=== PATIENT | male | born 1970 | race Caucasian/White ===

== ENCOUNTER 2021-10-15 15:41 | Emergency (ER) | payer BC, SELFPAY ==
--- NOTE | 2021-10-15 | ECG_ITS ---
Test Reason : palpitations Blood Pressure : / mmHG Vent. Rate : 062 BPM Atrial Rate : 062 BPM P-R Int : 140 ms QRS Dur : 096 ms QT Int : 398 ms P-R-T Axes : 029 020 045 degrees QTc Int : 403 ms Normal sinus rhythm Normal ECG When compared with ECG of 13-AUG-2017 06:58, No significant change was found Referred By: Generic ED Physician Electronically Signed By:David Hugo
--- NOTE | ~2021-10-15 | XR_ITS ---
EXAMINATION: XR CHEST CLINICAL INFORMATION: Palpitations COMPARISON: None TECHNIQUE: 2 views of the chest were obtained. FINDINGS: No significant abnormality is noted involving the heart, lungs, mediastinum, bony thorax or soft tissues. XR/XR chest 2V IMPRESSION: Unremarkable chest examination.
[2021-10-15 16:33] LABS: MANUAL DIFF FLAG NO
[2021-10-15 16:35] LABS: Basophils Absolute Auto 0.1 X10*3/uL (0.0-0.2); Basophils Percent Auto 0.7 % (0-2); Eosinophils Absolute Auto 0.2 X10*3/uL (0.0-0.4); Hematocrit 39.3 % (42.0-52.0); Hemoglobin 13.3 g/dl (14.0-18.0); Imm Gran Abs Auto 0.02 X10*3/uL (0.00-0.03); Imm Gran Pct Auto 0.2 % (0.0-0.4); Lymphocytes Absolute Auto 2.3 X10*3/uL (1.2-4.9); Lymphocytes Percent Auto 26.7 % (20-40); Mean Corpuscular HGB Conc 33.8 g/dl (31.0-36.0); Mean Corpuscular Hemoglobin 29.5 pg (27.0-33.0); Mean Corpuscular Volume 87.1 fL (80.0-98.0); Mean Platelet Volume 10.8 fL (9.4-12.4); Monocytes Absolute Auto 0.7 X10*3/uL (0.1-1.2); Monocytes Percent Auto 8.3 % (2-11); Neutrophils Absolute Auto 5.3 x10*3/uL (2.0-8.3); Neutrophils Percent Auto 62.1 % (45-73); Platelet Count 234 X10*3/uL (160-400); Red Blood Count 4.51 X10*6/uL (4.60-5.80); Red Cell Distribution Width 11.9 % (11.0-16.0); White Blood Count 8.6 X10*3/uL (4.8-10.8)
[2021-10-15 16:48] VITALS: BP 142/80; PULSE 64; RESP 18; TEMP 36.9; O2SAT 96; BMI 29.8
[2021-10-15 16:50] LABS: Anion Gap 14 (12-20); Blood Urea Nitrogen 12 mg/dL (9-16); Calcium 9.5 mg/dL (8.4-10.2); Carbon Dioxide 24 mmol/L (22-29); Chloride 106 mmol/L (96-108); Estimated Glomerular Filt Rate > 60; Glucose Random 117 mg/dL (60-115); Potassium 3.9 mmol/L (3.3-5.1); Sodium 140 mmol/L (135-145)
[2021-10-15 16:55] LABS: Troponin-I High Sensitivity < 3.5 ng/L (<3.5-35.0)
[2021-10-15 20:54] VITALS: BP 158/91; PULSE 67; RESP 18; O2SAT 98
[2021-10-15 21:17] VITALS: PULSE 64
[2021-10-15 21:21] VITALS: BP 144/86; PULSE 63; RESP 16; TEMP 36.9; O2SAT 95
[2021-10-15 21:46] LABS: INTERNATIONAL NORM RATIO 0.9 (0.9-1.1); Prothrombin Time 10.6 SEC (9.9-13.0)
[2021-10-15 21:49] LABS: Partial Thromboplastin Time 35.2 SEC (24.1-38.0)
[2021-10-15 21:50] LABS: TSH reflex Free T4 0.75 uIU/mL (0.32-4.0)
[2021-10-15 21:51] LABS: D Dimer High Sensitivity < 150 NG/ML
[2021-10-15 21:56] LABS: Troponin-I High Sensitivity < 3.5 ng/L (<3.5-35.0)
--- NOTE | 2021-10-15 22:10 | ED_ITS ---
HPI - General Adult General Chief complaint: Arrhythmia/Palpitations Stated complaint: concerned of fluttering heart Time Seen by Provider: 10/15/21 20:59 Source: patient Mode of arrival: ambulatory Limitations: no limitations History of Present Illness HPI narrative: 51-year-old male with history of high blood pressure presents to the ED for heart palpitations that began around 14:00. Patient denied having any shortness of breath. just sensation heart skipping beats. Patient states she has had this before in the past. Patient denies any leg swelling, calf pain, coughing up blood, fever, or chills. Presently patient is asymptomatic. Related Data Home Medications Medication Instructions Recorded Confirmed No Known Home Meds 09/24/21 09/24/21 Allergies Allergy/AdvReac Type Severity Reaction Status Date / Time No Known Allergies Allergy Verified 09/24/21 15:59 [No Known Allergies*] Review of Systems Review of Systems: Heart palpitations Yes all other systems are reviewed and are negative [facility] Past Medical History Surgical History History of tooth extraction Family History Family History Father FH: brain cancer Mother FH: HTN (hypertension) Social History Social History (Updated 09/24/21 @ 16:08 by Broderick Gaytan PA-C) Alcohol intake: current Alcohol intake frequency: 3 or more drinks per day Alcohol type: beer Patient Tobacco Use Status: Former Tobacco user Quit Date: 2012 Tobacco use type: Cigarette Advance Directives: No Advance Directives Information Provided: No Current occupational status: employed Current occupation: [employer] ( [place]) Physical Exam ED Vital Signs: Vital Signs - 24 hr 10/15/21 16:48 10/15/21 20:54 10/15/21 21:21 Temperature 98.4 F 98.4 F Pulse Rate 64 67 63 Respiratory Rate 18 18 16 Blood Pressure 142/80 H 158/91 H 144/86 H Pulse Oximetry 96 98 95 BMI result Body Mass Index 29.8 Const General: cooperative, healthy appearing, comfortable, no acute distress and well developed Orientation/consciousness: patient oriented x3 HENMT Head: Yes normal to inspection, Yes No palpable skull fracture present, Yes normocephalic, Yes atraumatic and No abrasion Eyes General: appearance normal, both eyes and all related structures Neck Neck: Yes normal visual inspection, Yes full ROM, Yes no lymphadenopathy, Yes no meningeal signs, Yes trachea midline, Yes supple, No anterior neck swelling and No tender Chest Chest palpation & inspection: normal inspection of the chest and normal palpation of entire chest wall Resp Effort & Inspection: normal respiratory effort and able to speak in complete sentences Auscultation: clear to auscultation bilaterally Cardio Jugular venous distension: no JVD Heart sounds: S1 normal heart sound present and S2 normal heart sound present GI Inspection: Yes normal to inspection and No abdominal wall ecchymosis Palpation (GI): Soft to palpation, not firm, nontender, no guarding and not rigid General: No CVA tenderness and Yes no CVA tenderness Back/Spine/Pelvis Back: no CVA tenderness, No CVA tenderness and No back tenderness Skin General skin exam: no rashes or lesions noted and elasticity normal Neuro General: patient oriented x3, gait normal, no meningeal signs and CN's II-XI intact bilaterally Cranial nerves: Yes CN's II-XII intact bilaterally Extrem Other: Lower extremities negative for swelling, pitting edema, or calf tenderness General: Yes normal to inspection and Yes full ROM Psych Appearance: grossly normal, well kempt and not disheveled Course Course Course Narrative: EKG, TSH, D-dimer, and basic labs including troponin chest x-ray ordered. Reevaluation(s) Reevaluation #1: EKG negative STEMI. Two troponins negative. D-dimer negative. Well's Score is 0 Thyroid level normal. Chest x-ray normal. Patient informed to follow-up primary care provider for Holter monitoring. Time: 22:39 Medical Decision Making [facility] Narrative Medical decision making narrative: Palpitation Lab Data Result diagrams: 10/15/21 16:30 10/15/21 16:30 Labs: Lab Results 10/15/21 10/15/21 10/15/21 Range/Units 16:30 16:30 16:30 WBC 8.6 (4.8-10.8) X10*3/uL RBC 4.51 L (4.60-5.80) X10*6/uL Hgb 13.3 L (14.0-18.0) g/dl Hct 39.3 L (42.0-52.0) % MCV 87.1 (80.0-98.0) fL MCH 29.5 (27.0-33.0) pg MCHC 33.8 (31.0-36.0) g/dl RDW 11.9 (11.0-16.0) % Plt Count 234 (160-400) X10*3/uL MPV 10.8 (9.4-12.4) fL Immature Gran % (Auto) 0.2 (0.0-0.4) % Neut % (Auto) 62.1 (45-73) % Lymph % (Auto) 26.7 (20-40) % [place] % (Auto) 8.3 (2-11) % Eos % (Auto) 2.0 (0-4) % Baso % (Auto) 0.7 (0-2) % Lymph # (Auto) 2.3 (1.2-4.9) X10*3/uL [place] # (Auto) 0.7 (0.1-1.2) X10*3/uL Eos # (Auto) 0.2 (0.0-0.4) X10*3/uL Baso # (Auto) 0.1 (0.0-0.2) X10*3/uL Abs Immat Gran (auto) 0.02 (0.00-0.03) X10*3/uL Absolute Neuts (auto) 5.3 (2.0-8.3) x10*3/uL Absolute Nucleated RBC 0.000 (0.0-0.012) X10*3/uL Nucleated RBC % (auto) 0.0 (0.0-0.2) /100WBC PT (9.9-13.0) SEC INR (0.9-1.1) APTT (24.1-38.0) SEC D-Dimer High Sensitivty NG/ML Sodium 140 (135-145) mmol/L Potassium 3.9 (3.3-5.1) mmol/L Chloride 106 (96-108) mmol/L Carbon Dioxide 24 (22-29) mmol/L Anion Gap 14 (12-20) BUN 12 (9-16) mg/dL Creatinine 1.00 (0.5-1.4) mg/dL Estim Creat Clear Calc TNP Estimated GFR > 60 Random Glucose 117 H (60-115) mg/dL Calcium 9.5 (8.4-10.2) mg/dL Troponin I High Sens < 3.5 (<3.5-35.0) ng/L TSH 0.75 (0.32-4.0) uIU/mL 10/15/21 10/15/21 Range/Units 21:29 21:29 WBC (4.8-10.8) X10*3/uL RBC (4.60-5.80) X10*6/uL Hgb (14.0-18.0) g/dl Hct (42.0-52.0) % MCV (80.0-98.0) fL MCH (27.0-33.0) pg MCHC (31.0-36.0) g/dl RDW (11.0-16.0) % Plt Count (160-400) X10*3/uL MPV (9.4-12.4) fL Immature Gran % (Auto) (0.0-0.4) % Neut % (Auto) (45-73) % Lymph % (Auto) (20-40) % [place] % (Auto) (2-11) % Eos % (Auto) (0-4) % Baso % (Auto) (0-2) % Lymph # (Auto) (1.2-4.9) X10*3/uL [place] # (Auto) (0.1-1.2) X10*3/uL Eos # (Auto) (0.0-0.4) X10*3/uL Baso # (Auto) (0.0-0.2) X10*3/uL Abs Immat Gran (auto) (0.00-0.03) X10*3/uL Absolute Neuts (auto) (2.0-8.3) x10*3/uL Absolute Nucleated RBC (0.0-0.012) X10*3/uL Nucleated RBC % (auto) (0.0-0.2) /100WBC PT 10.6 (9.9-13.0) SEC INR 0.9 (0.9-1.1) APTT 35.2 (24.1-38.0) SEC D-Dimer High Sensitivty < 150 NG/ML Sodium (135-145) mmol/L Potassium (3.3-5.1) mmol/L Chloride (96-108) mmol/L Carbon Dioxide (22-29) mmol/L Anion Gap (12-20) BUN (9-16) mg/dL Creatinine (0.5-1.4) mg/dL Estim Creat Clear Calc Estimated GFR Random Glucose (60-115) mg/dL Calcium (8.4-10.2) mg/dL Troponin I High Sens < 3.5 (<3.5-35.0) ng/L TSH (0.32-4.0) uIU/mL ECG Data Interpretation: Normal sinus rhythm. Ventricular rate 62. Pr interval 140. QRS 96. QTC 403. Negative STEMI. Discharge Plan Discharge Clinical Impression: Palpitations Patient Disposition: Home, Self-Care Instructions: Heart Palpitations (DC) Additional Instructions: You're EKG and blood work came back normal and negative for signs of heart attack, risk of pulmonary embolus, or hyperthyroidism. Chest x-ray came back negative for pneumonia. You need to follow-up with your primary care provider for a Holter monitor test. Return to the ED immediately for any chest pain, shortness of breath, leg swelling, calf pain, coughing up blood, weakness, fever, chills, or any other concerning symptoms. Prescriptions: No Action No Known Home Meds 0RF Stand Alone Forms: Work/School Release Interventions: ED Discharge Assessment Last Done: 10/15/21 22:50 Discharge Date/Time: 10/15/21 22:50 Print Language: Tajik
== END 2021-10-15 22:50 | disposition home or self-care (01) ==
PROVIDERS: Physician Assistant; Emergency Provider Internal Medicine; PCP Physician Assistant
DX: R00.2 Palpitations (principal)
CPT/HCPCS: 36415; 71046; 80048; 84443; 84484; 85025; 85379; 85610; 85730; 93005; 99283; 99284

== ENCOUNTER 2021-11-05 08:27 | Outpatient (REF) | payer BC, SELFPAY ==
--- NOTE | ~2021-11-05 | XR_ITS ---
EXAMINATION: XR THORACOLUMBAR SPINE CLINICAL INFORMATION: Pain COMPARISON: Previous chest x-ray most recent January 2013 TECHNIQUE: 3 views of the thoracic spine including swimmer's view FINDINGS: There is mild curvature of the midthoracic spine to the right with apex at T6-T7. This is similar to previous chest x-ray from 2013. Bone alignment is otherwise normal. No fracture or dislocation is seen. Disc spaces are normal. Paraspinal soft tissues are normal. XR/XR thoracic spine 2V IMPRESSION: Mild curvature of the midthoracic spine to the right.
[2021-11-05 09:35] LABS: Hematocrit 40.3 % (42.0-52.0); Hemoglobin 13.4 g/dl (14.0-18.0); Mean Corpuscular HGB Conc 33.3 g/dl (31.0-36.0); Mean Corpuscular Hemoglobin 29.4 pg (27.0-33.0); Mean Corpuscular Volume 88.4 fL (80.0-98.0); Mean Platelet Volume 11.1 fL (9.4-12.4); Platelet Count 200 X10*3/uL (160-400); Red Blood Count 4.56 X10*6/uL (4.60-5.80); Red Cell Distribution Width 12.2 % (11.0-16.0); White Blood Count 7.1 X10*3/uL (4.8-10.8)
[2021-11-05 09:42] LABS: Estimated Average Glucose 117 mg/dL; Hemoglobin A1c % 5.7 %
[2021-11-05 10:15] LABS: Alanine Aminotransferase 52 U/L (0-40); Albumin Level 4.2 g/dL (3.5-5.0); Alkaline Phosphatase 66 U/L (39-117); Anion Gap 11 (12-20); Aspartate Amino Transferase 31 U/L (5-37); Bilirubin Total 0.5 mg/dL (0.0-1.0); Blood Urea Nitrogen 15 mg/dL (9-16); Calcium 9.7 mg/dL (8.4-10.2); Carbon Dioxide 30 mmol/L (22-29); Chloride 103 mmol/L (96-108); Cholesterol 217 mg/dL; Estimated Glomerular Filt Rate > 60; Glucose Fasting 106 mg/dL (60-99); HDL Cholesterol 41 mg/dL; LDL Cholesterol Calculated 127 mg/dl; Potassium 4.5 mmol/L (3.3-5.1); Sodium 139 mmol/L (135-145); Total Protein 6.8 g/dL (6.5-8.0); Triglycerides 249 mg/dL
[2021-11-05 10:35] LABS: Prostate Specific Antigen Scr 0.32 ng/mL (<0.05-4.0)
== END 2021-11-05 08:28 | disposition home or self-care (01) ==
LOC: HO.LAB 08:27
PROVIDERS: PCP Physician Assistant; Visit Provider Physician Assistant
DX: Z12.5 Encounter for screening for malignant neoplasm of prostate (principal); Z13.220 Encounter for screening for lipoid disorders; Z13.29 Encounter for screening for other suspected endocrine disorder; M54.6 Pain in thoracic spine
CPT/HCPCS: 36415; 72070; 80053; 80061; 83036; 84153; 84443; 85027

== ENCOUNTER → 2021-11-07 10:44 | Outpatient (BNVA) | payer BC, SELFPAY | PROVIDERS: PCP Physician Assistant; Visit Provider Physician Assistant | DX: Z13.89 Encounter for screening for other disorder (principal) ==

== ENCOUNTER → 2021-12-16 13:08 | Outpatient (BNVA) | payer BC, SELFPAY | PROVIDERS: PCP Physician Assistant; Visit Provider Physician Assistant | DX: Z12.11 Encounter for screening for malignant neoplasm of colon (principal) ==

== ENCOUNTER 2022-04-15 11:15 | Day surgery (SDC) | payer BC, SELFPAY ==
[2022-04-10 12:37] VITALS: BMI 30.6
--- NOTE | 2022-04-14 11:56 | P.CONAN_ITS ---
Documented by User: Priya Hooper NP 04/14/22 12:07 HPI - Anesthesia Eval Consult details Narrative: 51yo M for Upper Endoscopy and Colonoscopy Had palpitations 10/2021, none since. Nml EKG and trops in ED. Followed up with PCP. Holter pending. [facility] Active Problems Active Problems: All Active Problems (Updated 04/10/22 @ 12:33 by Brisa Chang RN) Obese (Acute) Screening for diabetes mellitus (DM) (Acute) Screening for hypercholesterolemia (Acute) Screening for hypothyroidism (Acute) Elevated blood pressure reading (Acute) Thoracic spine pain (Acute) Colon cancer screening (Acute) Annual physical exam (Acute) Heart palpitations (Acute) Borderline high cholesterol (Acute) Elevated AST (SGOT) (Acute) Skin lesion of cheek (Acute) Chronic GERD (Acute) Past Medical History Medical History Palpitations Family History Family History Father FH: brain cancer Mother FH: HTN (hypertension) Surgical History Surgical History History of nasal surgery History of tooth extraction Social History Social History Housing: House Alcohol intake: current Alcohol intake frequency: 3 or more drinks per day Alcohol type: beer Patient Tobacco Use Status: Former Tobacco user Quit Date: 2012 Tobacco use type: Cigarette e-Cigarette/Vaping Use: Never Used Advance Directives: No Advance Directives Information Provided: Yes Current occupational status: employed Current occupation: [employer]) Cognitive needs: No Hearing needs: No Vision needs: No Meds Allergies Allergy/AdvReac Type Severity Reaction Status Date / Time No Known Allergies Allergy Verified 12/16/21 13:09 [No Known Allergies*] Home Medications Medication Instructions Recorded Confirmed Last Taken Type cetirizine 10 mg capsule (Zyrtec) 10 mg PO DAILY PRN Allergy Symptoms 11/18/21 04/10/22 Unknown History omeprazole magnesium 20 mg 20 mg PO DAILY 11/18/21 04/10/22 Unknown History tablet,delayed release (Prilosec OTC) Exam Exam Date and Time: April 14, 2022 1156 Height,Weight and Vital Signs: Height 6 ft Weight 102.512 kg Pertinent Lab Results Pertinent Lab Results: Laboratory Tests 11/05/21 11/05/21 08:50 08:50 WBC 7.1 Hgb 13.4 L Hct 40.3 L Plt Count 200 Sodium 139 Potassium 4.5 Chloride 103 Carbon Dioxide 30 H BUN 15 Creatinine 0.96 Narrative Narrative: EKG 09/2021 Vent. Rate : 062 BPM ? ? Atrial Rate : 062 BPM ?? P-R Int : 140 ms? QRS Dur : 096 ms ? ? QT Int : 398 ms ? ? ? P-R-T Axes : 029 020 045 degrees ?? QTc Int : 403 ms ? Normal sinus rhythm Normal ECG When compared with ECG of 13-AUG-2017 06:58, No significant change was found Assessment and Plan Assessment Anesthesia Assessment: Chart Reviewed Documented by User: Refugio Graham MD 04/15/22 12:17 [facility] Past Medical History Medical History Palpitations Family History Family History Father FH: brain cancer Mother FH: HTN (hypertension) Family history of problems with anesthesia: No Surgical History Surgical History History of nasal surgery History of tooth extraction History of Problems with Anesthesia: No Social History Social History Housing: House Alcohol intake: current Alcohol intake frequency: 3 or more drinks per day Alcohol type: beer Patient Tobacco Use Status: Former Tobacco user Quit Date: 2012 Tobacco use type: Cigarette e-Cigarette/Vaping Use: Never Used Advance Directives: No Advance Directives Information Provided: Yes Current occupational status: employed Current occupation: [employer]) Cognitive needs: No Hearing needs: No Vision needs: No Meds Allergies Allergy/AdvReac Type Severity Reaction Status Date / Time No Known Allergies Allergy Verified 12/16/21 13:09 [No Known Allergies*] Home Medications Medication Instructions Recorded Confirmed Last Taken Type cetirizine 10 mg capsule (Zyrtec) 10 mg PO DAILY PRN Allergy Symptoms 11/18/21 04/10/22 Unknown History omeprazole magnesium 20 mg 20 mg PO DAILY 11/18/21 04/10/22 Unknown History tablet,delayed release (Prilosec OTC) Exam Airway Mallampati Class: III TM Dist: >3cm Neck ROM: Full Heart: rrr Lungs: clear Assessment and Plan Final Anesthetic Review Family History of Problems with Anesthesia: No History of Problems with Anesthesia: No NPO: Yes ASA Class: II Final Preanesthetic Review: No Changes in Pt Med Stat, Meds/Allgs Chart Reviewed, Consent Obtained/Reviewed and Anes Risks/Benef Reviewed Anesthetic Plan Anesthetic Plan: MAC: Disposition: Standard PACU
[2022-04-15] MEDS: Lactated Ringers 1,000 ML 100 ML IVCONT (11:47)
--- NOTE | 2022-04-15 12:00 | P.HPSUR_ITS ---
Pre-Procedural Eval Section A Date of Service: 04/15/22 Section B Chief Complaint: screening,reflux Relevant Family History (Specify if Yes): No Relevant Social History: Other (specify) (ex smoker ) Present Medications: see Short Stay Collaborative assessment Medical History: Significant History (Palpitations) History of Previous Operations: Relevant previous surgery/procedure and date(s) (nasal surgery) Allergies: Allergies Allergy/AdvReac Type Severity Reaction Status Date / Time No Known Allergies Allergy Verified 12/16/21 13:09 [No Known Allergies*] Review of Systems Sugical H&P ROS: Negative: Constitution, Cardiovascular, Respiratory, Neuro logical, Psychiatric, Hem-Onc, Allergic/Immunologic, Gastrointestinal, Genitourinary, Musculoskeletal, Integumentary, Endocrine and Eyes/Ears/Nose/Throat Exam Surgical H&P Exam: Normal: HEENT, Normal: Heart, Normal: Lungs, Normal: Extremities, Normal: Abdomen, Normal: Skin and Normal: Neurological Plan Diagnosis/Plan: Unchanged I have reviewed the history and physical and performed a pertinent physical examination on my patient. No changes have occurred unless specified.
--- NOTE | 2022-04-15 12:24 | W.PM.OPN ---
Operative Note Operative Note Date of Service: 04/15/22 Narrative: Operative Information Procedure Description: EGD, Colonoscopy Indication: reflux, screening Anesthesia: MAC FLEXIBLE TRANSORAL UPPER GASTROINTESTINAL ENDOSCOPY AND COLONOSCOPY PROCEDURE NOTE UPPER ENDOSCOPY Consent: Indications for the procedure and potential complications of bleeding, perforation, reaction to medications and missed diagnosis were discussed with the patient and informed consent was obtained. Instrument: Olympus GIF H 190 J mid size upper endoscope Monitoring: Vital signs and clinical assessment, continuous EKG monitoring, Pulse oximetry, Carbon Dioxide monitoring and blood pressure monitoring were done throughout the procedure. Procedure: The patient was placed in the left lateral decubitis position and pre-procedure medications were administered and a bite block was placed. The endoscope was inserted into the mouth and advanced under direct vision to the third part of duodenum. A careful inspection was made as the upper endoscope was withdrawn including a retroflexed examination of the proximal stomach; Findings and interventions are described below. Findings: Larynx:normal Esophagus: GE junction at 40 cm, diaphragm hiatus at 40 cm, irregular Z line,. bx taken from GEJ and distal esophagus Stomach: Granular erythemaous mucosa. Biopsies were obtained. Grade 2 flap valve on retroflexed examination of the cardia. Duodenum: mild bulbar duodenitis Intervention: Biopsies as noted above COLONOSCOPY Instrument: Olympus variable stiffness pediatric scope 190L Colonoscopy Monitoring: Vital signs and clinical assessment, continuous EKG monitoring, Pulse oximetry, Carbon Dioxide monitoring and blood pressure monitoring were done throughout the procedure. Colon withdrawal time was 8 minutes. Procedure: The patient was placed in the left lateral decubitis position and pre-procedure medications were administered. After a digital rectal examination of the ano-rectum, the video colonoscope was inserted into the rectum and advanced through the colon to the cecum/TI. The colonoscope was slowly withdrawn in a retrograde panoramic fashion and the colon mucosa was carefully examined including a retroflexed view of the rectum. Findings and interventions are described below. Procedure Difficulty: easy Findings: Terminal Ileum-normal right sided retroflexion -normal Cecum:normal Ascending Colon: 12-14 mm sessile polyp removed with cold snare and then x 1 clip applied for hemostasis Transverse Colon -normal Descending Colon:normal Sigmoid Colon:mild to moderate diverticulosis Rectum: Retroflexion with small internal hemorrhoids, grade I Anorectum - normal Colon preparation: [place] Bowel Preparation Scale Right colon; 3 Transverse colon: 3 Left colon; 3 (0 = Unprepared colon segment with mucosa not seen due to solid stool that cannot be cleared. 1 = Portion of mucosa of the colon segment seen, but other areas of the colon segment not well seen due to staining, residual stool and/or opaque liquid. 2 = Minor amount of residual staining, small fragments of stool and/or opaque liquid, but mucosa of colon segment seen well. 3 = Entire mucosa of colon segment seen well with no residual staining, small fragments of stool or opaque liquid) Impression and Post Procedure Diagnosis: Endoscopy Findings: duodenitis gastritis Colonoscopy Findings: polyp internal hemorrhoids diverticular disease Plan: Await Pathology results Repeat Colonoscopy in 3-5 years or earlier if clinically indicated High fiber diet leaflet avoid straining at stool, epsom salts and sitz bath, anusol supps or cream cont with PPI, if barretts confirmed then repeat EGD in 3-5 years, if h pylori pos then treat Above findings were reviewed with the patient and relevant handouts were provided if indicated.
[2022-04-15 13:02] VITALS: BP 143/82; PULSE 77; RESP 16; TEMP 36.7; O2SAT 96
[2022-04-15 13:17] VITALS: BP 121/70; PULSE 65; RESP 16; TEMP 36.7; O2SAT 97
== END 2022-04-15 14:06 | disposition home or self-care (01) ==
PROVIDERS: PCP Physician Assistant; Visit Provider Internal Medicine Gastroenterology
PROC: (CPT 45385; principal; 2022-04-15 12:30)
DX: Z12.11 Encounter for screening for malignant neoplasm of colon (principal); D12.2 Benign neoplasm of ascending colon; K57.30 Diverticulosis of large intestine without perforation or abscess without bleeding; K64.0 First degree hemorrhoids; K21.9 Gastro-esophageal reflux disease without esophagitis; K29.80 Duodenitis without bleeding; K29.70 Gastritis, unspecified, without bleeding; K44.9 Diaphragmatic hernia without obstruction or gangrene; Z79.899 Other long term (current) drug therapy; Z87.891 Personal history of nicotine dependence
CPT/HCPCS: 45385; 43239; 88305; 88342

== ENCOUNTER 2023-06-04 15:39 | Outpatient (AMB) | payer BC, SELFPAY ==
[2023-06-04 15:41] VITALS: BP 150/90; PULSE 82; O2SAT 95; BMI 30.8
--- NOTE | 2023-06-04 15:41 | A.OFFPC_ITS ---
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: No Accompanied by: Self / Same As Patient Allergies No Known Allergies [No Known Allergies*] Allergy (Verified 06/04/23 16:40) Medication List - Last Reconciled 06/04/23 by Broderick Gaytan PA-C cetirizine (Zyrtec) 10 mg PO DAILY PRN hydrochlorothiazide 12.5 mg PO DAILY 30 days omeprazole 20 mg PO DAILY Tobacco use date assessed: 11/18/21 Dental Screening Dental Screen Date: 06/04/23 Did you have a dental visit in the last 12 months?: Yes Did you have a dental problem in the last 6 months where you did not have access to dental care?: No Was dental information given to patient?: Patient has dentist HPI Annual Physical HPI Details Patient is a 52-year-old male here today for routine annual physical concerns--> reports having having right knee in the medial aspect of his right knee. Denies any recent trauma. He attributes this to perhaps having arthritis. Former smoker: Patient is a former smoker and quit in 2012.? The from time to time does have a cigar while playing golf. Hypertension Has noted elevated blood pressure today in office.? He does report sometimes have an elevated blood pressure at home though most readings have been 130-150s? systolic.? He continues on hydrochlorothiazide though blood pressure still slightly elevated at home even. Otherwise patient denies any chest discomfort, shortness of breath, dizziness or headaches. PLAN: Will add on lisinopril for better blood pressure control Colonic polyp: Recently had gotten colonoscopy--> tubulovillous adenoma, needs repeat colonoscopy in 3 years 2024 Laboratory Tests 11/05/21 08:50 Creatinine 0.96 Fasting Glucose 106 H Hemoglobin A1c % 5.7 Triglycerides 249 Cholesterol 217 LDL Cholesterol, C alc 127 [facility] Medical History Palpitations Surgical History Hx of esophagogastroduodenoscopy Hx of colonoscopy History of nasal surgery History of tooth extraction Family History Father FH: brain cancer Mother FH: HTN (hypertension) Afib Social History (Updated 06/04/23 @ 16:51 by Broderick Gaytan PA-C) Housing: House Alcohol intake: current Alcohol intake frequency: 0-2 drinks per day Alcohol type: beer Patient Tobacco Use Status: Former Tobacco user Quit Date: 2012 Tobacco use type: Cigarette e-Cigarette/Vaping Use: Never Used Current occupational status: employed Current occupation: [employer] ( [email or web address]) Cognitive needs: No Hearing needs: No Vision needs: No Questionnaire PHQ-9 Over the last 2 weeks, how often have you been bothered by any of the following problems? 1. Little interest or pleasure in doing things: not at all 2. Feeling down, depressed, or hopeless: not at all 3. Trouble falling or staying asleep, or sleeping too much: not at all 4. Feeling tired or having little energy: not at all 5. Poor appetite or overeating: not at all 6. Feeling bad about yourself - or that you are a failure or have let yourself or your family down: not at all 7. Trouble concentrating on things, such as reading the newspaper or watching television: not at all 8. Moving or speaking so slowly that other people could have noticed. Or the opposite - being so fidgety or restless that you have been moving around a lot more than usual: not at all 9. Thoughts that you would be better off or of hurting yourself in some way: not at all Total score: 0 Depression Screening Interpretation: Negative Depression Screening Done: Yes Source: Developed by Drs. Jarvis Kelly, Mary Mata, Man Marshall and colleagues, with an educational juli from [employer]. Thrive Questionnaire Date Thrive assessed: 06/04/23 I am a: Patient What is your living situation today?: I have a steady place to live Within the past 12 months, did the food you bought not last and you didn't have the money to get more?: Never true Within the past 12 months, did you worry whether your food would run out before you got money to buy more?: Never true Do you have trouble paying for medicines?: No Do you have trouble getting transportation to medical appointments?: No Do you have trouble paying your heating and electricity bill?: No Do you have trouble taking care of your child, family member or friend?: No Do you have trouble with day-to-day activities such as bathing, preparing meals, shopping, managing finances, etc.?: No Are you currently unemployed and looking for a job?: No Are you interested in more education?: No Please select the resources that you would like help with: None Currently or been in a relationship where the following occur: no concerns reported AUDIT C Alcohol Use Questionnaire (AUDIT-C) 1. How often do you have a drink containing alcohol?: Monthly or less 2. How many drinks containing alcohol do you have on a typical day when you are drinking?: 1 or 2 3. How often do you have six or more drinks on one occasion?: Never Total Score: 1 MERRY-7 AMB Questionnaire MERRY-7 Date MERRY - 7 assessed: 06/04/23 Feeling nervous, anxious, or on edge: 0 = Not at all Not being able to stop or control worryin = Not at all Worrying too much about different things: 0 = Not at all Trouble relaxin = Not at all Being so restless that it is hard to sit still: 0 = Not at all Becoming easily annoyed or irritable: 0 = Not at all Feeling afraid as if something awful might happen: 0 = Not at all Total MERRY-7 score (0-4 normal; 5-9 mild; 10-14 moderate; 15-21 severe): 0 Source: Developed by Drs. Jarvis Kelly, Mary Mata, Man Marshall and colleagues, with an educational juli from [employer]. MERRY-7 Assessment Billing MERRY-7 Assessment Tool: MERRY-7 Assessment [id number] Review of Systems Const Denies body aches, Denies chills, Denies excessive sweating, Denies fatigue, Denies fever(s) and Denies headache(s) Eyes Denies blurry vision ENT Denies dysphagia, Denies vertigo, Denies dizziness, Denies headache(s), Denies hearing loss and Denies tinnitus Card Denies chest pain, Denies chest pain with activity, Denies syncope, Denies irregular heart rhythm and Denies dyspnea Resp Denies chest congestion, Denies cough, Denies hemoptysis, Denies dyspnea and Denies wheezing GI Denies abdominal pain, Denies melena, Denies hematochezia, Denies coffee ground emesis, Denies dysphagia, Denies diarrhea, Denies nausea and Denies vomiting Denies difficulty urinating, Denies dysuria, Denies urinary frequency, Denies urinary hesitancy and Denies urinary urgency Musc Denies arthralgias, Denies limited range of motion, Denies muscle cramps and Denies muscle weakness Skin/Breast Denies rash and Denies skin ulcer Neuro Denies Abnormal speech present, Denies confusion, Denies vertigo, Denies dizziness, Denies syncope, Denies headache(s), Denies memory loss and Denies seizure-like activity Psych Denies anxiety, Denies confusion, Denies depression, Denies memory loss, Denies panic attacks and Denies paranoia Endo Denies excessive sweating, Denies fatigue, Denies flushing, Denies polydipsia and Denies polyuria Aller/Immun Denies wheezing Physical exam (Primary Care) Vital Signs: Last Vital Signs Pulse 82 06/04/23 15:41 BP 150/80 H 06/04/23 16:52 Pulse Ox 95 06/04/23 15:41 Oxygen Delivery Method Room Air 06/04/23 15:41 BMI result Body Mass Index 30.8 Tobacco/Smoking Status: Tobacco use Status Tobacco use date assessed 11/18/21 06/04/23 15:43 Patient Tobacco Use Status Former Tobacco user 06/04/23 16:51 Tobacco use type Cigarette 06/04/23 16:51 e-Cigarette/Vaping Use Never Used 06/04/23 16:51 PHQ-9: PHQ-9 Score PHQ-9: Total score 0 06/09/23 07:49 Depression Screening Interpretation: Negative Thrive Assessment: Date of Thrive Assessment Date Thrive assessed 06/04/23 06/04/23 16:16 Currently or been in a relationship where the following occur: no concerns reported Const General: cooperative, comfortable, no acute distress, alert and awake; No confusion Orientation/consciousness: oriented to person, oriented to place, patient oriented x3 and No confusion HENMT Head: Yes normocephalic Ears: external ears normal and TM's normal bilaterally Face and sinus: No sinus tenderness Mouth: Normal oral and palatal mucosa present and tongue normal Teeth and gingiva: dentition normal and gingiva normal Throat: Yes posterior oropharynx normal, Yes tonsils normal and Yes uvula midline Eyes Conjunctivae: conjunctivae normal Sclerae: sclerae normal Pupils: Equal, round and reactive pupils present EOM: EOMs intact bilaterally Direct Ophthalmoscopy: No no photophobia Neck Neck: Yes no lymphadenopathy, No tender and Yes no JVD Thyroid: Thyroid normal Carotids: no bruits Chest Chest palpation & inspection: no tenderness Resp Effort & Inspection: normal respiratory effort, no audible wheezes, not labored and no stridor Auscultation: no crackles, no rales, no rhonchi and no wheezes Cardio Jugular venous distension: no JVD Rate: regular rate, not bradycardic and not tachycardic Rhythm: regular rhythm Bruits: no carotid bruits Peripheral pulses: Peripheral pulses 2+ throughout GI Inspection: Yes normal to inspection, No abdominal wall ecchymosis and No visi ble herniation Palpation (GI): Soft to palpation, nontender, no guarding, not rigid and No hepatosplenomegaly present Auscultation: normoactive bowel sounds General: Yes no CVA tenderness Back/Spine/Pelvis Back: no CVA tenderness and No back tenderness Cervical Spine: cervical ROM normal Thoracic/Lumbar Spine: thoracic and lumbar spine normal to inspection, straight leg raise negative bilaterally, No thoraco-lumbar ROM limited and No lumbar spinal tenderness Skin Lesions: no lesions Rashes: no rashes Wounds: no wounds Neuro General: oriented to person, oriented to place, patient oriented x3, CN's II-XI intact bilaterally and No confusion Cranial nerves: Yes Equal, round and reactive pupils present and Yes Normal accommodation reflex present Cognition (Neuro): normal cognition Speech: No Abnormal speech present Gait exam (Neuro): Normal gait present Motor exam (neuro): 5/5 motor strength present throughout Extrem Right upper extremity: full ROM; no cyanosis Left upper extremity: full ROM; no cyanosis Right lower extremity: no edema Left lower extremity: no edema Psych Appearance: grossly normal Mental Status: mental status grossly normal Affect: normal affect Attitude: cooperative Thought process: Normal thought process present Office Procedures Flu Questionnaire Does the patient have a severe egg allergy?: No Does the patient have severe life threatening allergies?: No Does the patient have a fever or illness today?: No Has the patient ever had Guillain-Baraga Syndrome?: No Has the patient ever had any past reaction to a flu shot?: No Immunizations flu vacc [id number] 6mos up(PF) 60 mcg(15 mcgx4)/0.5 mL IM syringe Performing Provider: Broderick Gaytan PA-C [facility] Administered by: KASSIE Ramirez on 06/04/23 16:36 Dose Route Admin Location Dispensed Lot Number Expiration Date [employer] 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 0.5 mL IM Left Deltoid 0.5 mL [id number] 01/24/24 39730-981-96 [employer] VIS Given Date VIS Provided VIS Publication Date 06/04/23 Single Vaccine 21 Eligibility Eligibility Date Funding Source Not [facility] Eligible 06/04/23 Private Assessment and Plan Assessment & Plan (1) Annual physical exam: Code(s): Z00.00 - Encounter for general adult medical examination without abnormal findings (2) HTN (hypertension): Code(s): I10 - Essential (primary) hypertension Qualifiers: Hypertension type: primary hypertension Qualified Code(s): I10 - Essential (primary) hypertension Plan: Patient's blood pressure slightly elevated today in office. He does report home blood pressures have been a little more elevated. He is willing to add on lisinopril for better blood pressure control. (3) Tubulovillous adenoma: Comment: Repeat asymptomatic colonoscopy 3 years All first-degree relatives begin colon screening age 40 Code(s): D36.9 - Benign neoplasm, unspecified site Plan: Needs repeat colonoscopy in 2024 due to tubular adenoma polyp. (4) MCL sprain of right knee: Code(s): S83.411A - Sprain of medial collateral ligament of right knee, initial encounter Qualifiers: Encounter type: subsequent encounter Qualified Code(s): S83.411D - Sprain of medial collateral ligament of right knee, subsequent encounter Plan: Seems to have MCL sprain to the right knee. Advised on conservative treatment (5) Borderline high cholesterol: Code(s): E78.9 - Disorder of lipoprotein metabolism, unspecified Plan: Patient's most recent lipid panel showing borderline high total cholesterol. He would like to work on lifestyle modifications and reducing his cholesterol. Goal LDL to remain below 160 Orders: Orders Comprehensive [place]. Panel Fast 06/04/23 I10 - Essential (primary) hypertension Lipid Panel 06/04/23 I10 - Essential (primary) hypertension Influenza [id number] Immunization 06/04/23 Z23 - Encounter for immunization Microalbumin, Random (w Creat) 06/04/23 I10 - Essential (primary) hypertension Medications: New lisinopril-hydrochlorothiazide 10-12.5 mg 1 tab PO DAILY 90 days 90 tabs 1RF I10 - Essential (primary) hypertension Discontinued hydrochlorothiazide Discontinued Reason: Doctor's Order 12.5 mg PO DAILY 30 days 30 tabs 3RF I10 - Essential (primary) hypertension Coding Level of Care Code Est Pt Prev Care 40-64y(63832) Diagnoses Annual physical exam Z00.00 Primary hypertension I10 Hypertension type: primary hypertension Tubulovillous adenoma D36.9 Sprain of medial collateral ligament of right knee, subsequent encounter S83.411D Encounter type: subsequent encounter Borderline high cholesterol E78.9 Additional Codes MERRY-7 Assessment Billing - MERRY-7 Assessment Tool: MERRY-7 Assessment [id number] ([id number])
[2023-06-04 16:52] VITALS: BP 150/80
== END 2023-06-04 17:06 | disposition home or self-care (01) ==
PROVIDERS: Visit Provider Physician Assistant
DX: Z23 Encounter for immunization (principal)
CPT/HCPCS: 90471; 90686; 99396

== ENCOUNTER 2023-10-30 07:39 | Outpatient (REF) | payer BC, SELFPAY ==
[2023-10-30 09:14] LABS: Creatinine Urine 82.55 mg/dL; Microalbumin Urine < 5.0 mg/L
[2023-10-30 09:23] LABS: Alanine Aminotransferase 68 U/L (0-40); Albumin Level 4.1 g/dL (3.5-5.0); Alkaline Phosphatase 66 U/L (39-117); Anion Gap 12 (12-20); Aspartate Amino Transferase 26 U/L (5-37); Bilirubin Total 0.7 mg/dL (0.0-1.0); Blood Urea Nitrogen 15 mg/dL (9-16); Calcium 9.6 mg/dL (8.4-10.2); Carbon Dioxide 29 mmol/L (22-29); Chloride 102 mmol/L (96-108); Cholesterol 218 mg/dL (<200); Estimated Glomerular Filt Rate > 60; Glucose Fasting 104 mg/dL (60-99); HDL Cholesterol 40 mg/dL (>40); LDL Cholesterol Calculated 131 mg/dL (<100); Potassium 3.8 mmol/L (3.3-5.1); Sodium 139 mmol/L (135-145); Triglycerides 236 mg/dL (<150)
== END 2023-10-30 07:40 | disposition home or self-care (01) ==
LOC: HO.LAB 07:39
PROVIDERS: PCP Physician Assistant; Visit Provider Physician Assistant
DX: I10 Essential (primary) hypertension (principal)
CPT/HCPCS: 36415; 80053; 80061; 82043; 82570

== ENCOUNTER 2024-05-12 08:19 | Outpatient (REF) | payer BC, SELFPAY ==
[2024-05-12 09:38] LABS: Alanine Aminotransferase 50 U/L (0-40); Albumin Level 4.1 g/dL (3.5-5.0); Alkaline Phosphatase 63 U/L (39-117); Anion Gap 12 (12-20); Aspartate Amino Transferase 32 U/L (5-37); Bilirubin Total 0.6 mg/dL (0.0-1.0); Blood Urea Nitrogen 14 mg/dL (9-16); Calcium 9.4 mg/dL (8.4-10.2); Carbon Dioxide 29 mmol/L (22-29); Chloride 103 mmol/L (96-108); Estimated Glomerular Filt Rate > 60; Glucose Random 115 mg/dL (60-115); Sodium 140 mmol/L (135-145)
[2024-05-12 09:58] LABS: Prostate Specific Antigen Scr 0.31 ng/mL (<0.05-4.0)
== END 2024-05-12 08:20 | disposition home or self-care (01) ==
LOC: HO.LAB 08:19
PROVIDERS: PCP Physician Assistant; Visit Provider Physician Assistant
DX: I10 Essential (primary) hypertension (principal); Z12.5 Encounter for screening for malignant neoplasm of prostate
CPT/HCPCS: 36415; 80053; 84153

== ENCOUNTER → 2024-05-23 08:17 | Outpatient (BNV) | payer BC, SELFPAY | PROVIDERS: Emergency Provider Emergency Medicine; PCP Physician Assistant; Visit Provider Internal Medicine | DX: I49.3 Ventricular premature depolarization (principal) | CPT/HCPCS: 93010 ==

== ENCOUNTER 2024-05-23 08:19 | Emergency (ER) | payer BC, SELFPAY ==
--- NOTE | 2024-05-23 | ECG_ITS ---
Test Reason : irregular heart rate Blood Pressure : / mmHG Vent. Rate : 067 BPM Atrial Rate : 067 BPM P-R Int : 146 ms QRS Dur : 094 ms QT Int : 394 ms P-R-T Axes : 018 014 030 degrees QTc Int : 416 ms Normal sinus rhythm Premature ventricular complexes Otherwise normal ECG When compared with ECG of 15-OCT-2021 16:28, Premature ventricular complexes are now Present Referred By: Generic ED Physician Electronically Signed By:NARDA BEARDEN
--- NOTE | ~2024-05-23 | XR_ITS ---
EXAMINATION: XR CHEST CLINICAL INFORMATION: Chest pain. COMPARISON: Chest radiograph 10/15/2021. TECHNIQUE: Frontal view of the chest was obtained. FINDINGS: Stable asymmetric elevation of the right hemidiaphragm. No focal consolidation, pleural effusion or pneumothorax. Unchanged appearance of the cardiomediastinal silhouette. No acute osseous findings. XR/XR chest 1V IMPRESSION: No acute cardiopulmonary findings. Electronically signed by: Carley Pickard MD 05/23/2024 09:50 AM EDT
[2024-05-23 08:28] VITALS: BP 136/80; PULSE 52; RESP 16; TEMP 36.3; O2SAT 97; BMI 31.9
--- NOTE | 2024-05-23 08:45 | ED_ITS ---
HPI - Arrhythmia/Palpitations General Chief Complaint: Arrhythmia/Palpitations Stated Complaint: Irregular heart rate Time Seen by Provider: 05/23/24 08:38 Source: patient Mode of arrival: ambulatory Limitations: no limitations History of Present Illness HPI narrative: This is 53 years old patient presented to the emergency department with a chief complaint of feeling of palpitations he denies any chest pain shortness of breath. He has some shoulder pain which is reproduced the by the movement of the shoulder. He has no exertional symptoms MD complaint: skipped beats Duration: intermittent Severity: mild Context: occurred during rest Associated symptoms: denies other symptoms Related Data Home Medications ?Medication ?Instructions ?Recorded ?Confirmed cetirizine 10 mg capsule (Zyrtec) 10 mg PO DAILY PRN Allergy Symptoms 11/18/21 06/04/23 Previous Rx's ?Medication ?Instructions ?Recorded omeprazole 20 mg capsule,delayed 20 mg PO DAILY #90 caps 12/17/23 release losartan 50 mg-hydrochlorothiazide 1 tab PO DAILY 90 days #90 tabs 04/22/24 12.5 mg tablet Allergies Allergy/AdvReac Type Severity Reaction Status Date / Time No Known Allergies Allergy Verified 05/23/24 08:31 [No Known Allergies*] Review of Systems 2 Constitutional: Constitutional: Reports no additional constitutional complaints Cardiovascular: Cardiovascular: Reports as per HPI and Reports no additional cardiovascular complaints [facility] Past Medical History Attestation statement: The following information was validated with the patient. [facility] Narrative: Hypertension Medical History Palpitations Surgical History Hx of esophagogastroduodenoscopy Hx of colonoscopy History of nasal surgery History of tooth extraction Family History Family History Father FH: brain cancer Mother FH: HTN (hypertension) Afib Social History Social History (Updated 06/04/23 @ 16:51 by Broderick Gaytan PA-C) Housing: House Alcohol intake: current Alcohol intake frequency: 0-2 drinks per day Alcohol type: beer and hard liquor Patient Tobacco Use Status: Former Tobacco user Tobacco use type: Cigarette Smoked in Last 30 Days: No e-Cigarette/Vaping Use: Never Used Use of substances other than those prescribed or required for medical reasons: No Advance Directives: No Advance Directives Information Provided: Yes Do you have a plan to hurt others: No Plan Current occupational status: employed 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[place]) Cognitive needs: No Hearing needs: No Vision needs: No Physical Exam 2 Vital Signs: Vital Signs: Last Vital Signs Temp 97.9 F 05/23/24 11:39 Pulse 56 05/23/24 11:39 Resp 14 05/23/24 11:39 BP 119/71 05/23/24 11:39 Pulse Ox 98 05/23/24 11:39 O2 Del Method Room Air 05/23/24 11:39 BMI result Body Mass Index 31.9 Looks well no toxic-appearing Const: General: cooperative Nutritional Appearance: average body habitus Orientation/consciousness: oriented to person and patient oriented x3 L imitations: no limitations HEENT: Head: Yes normal to inspection Neck: Neck: Yes normal visual inspection Chest: Chest palpation & inspection: normal inspection of the chest Resp: Effort & Inspection: normal respiratory effort Cardio: Jugular venous distension: no JVD Rate: regular rate Rhythm: r egular rhythm GI: Inspection: Yes normal to inspection Palpation (GI): Soft to palpation and not firm : General: Yes no CVA tenderness Back/Spine/Pelvis: Back: no CVA tenderness Skin: General skin exam: no rashes or lesions noted Lesions: no lesions Rashes: no rashes Wounds: no wounds Neuro: General: oriented to person and patient oriented x3 Cranial nerves: Yes CN's II-XII intact bilaterally Course Reevaluation(s) Reevaluation #1: On re-examination remained stable a delta troponin negative chest x-ray normal I think he can be discharged home on a monitor he has a frequent PVCs I think that is the reason for his feeling of palpitation Time: 12:27 Medical Decision Making Medical Decision Making [facility] Narrative: Patient presented with palpitation we will obtain EKG high sensitive troponin Differential Diagnosis Differential Diagnoses: The differential diagnosis associated with the presentation includes SVT/AFib/a flutter/ Admission/Observation Consideration of admission/observation: Escalation of care including admission/observation considered Lab Data [facility] Lab Attestation statement: I reviewed the patient's lab results. 05/23/24 09:10 05/23/24 09:10 Labs: Lab Results 05/23/24 05/23/24 05/23/24 Range/Units 09:10 10:31 11:43 WBC 9.2 (4.8-10.8) X10*3/uL RBC 4.57 L (4.60-5.80) X10*6/uL Hgb 13.6 L (14.0-18.0) g/dl Hct 40.5 L (42.0-52.0) % MCV 88.6 (80.0-98.0) fL MCH 29.8 (27.0-33.0) pg MCHC 33.6 (31.0-36.0) g/dl RDW 12.2 (11.0-16.0) % Plt Count 210 (160-400) X10*3/uL MPV 10.9 (9.4-12.4) fL Immature Gran % (Auto) 0.3 (0.0-0.4) % Neut % (Auto) 60.8 (45-73) % Lymph % (Auto) 27.2 (20-40) % Reeves % (Auto) 8.6 (2-11) % Eos % (Auto) 2.4 (0-4) % Baso % (Auto) 0.7 (0-2) % Lymph # (Auto) 2.5 (1.2-4.9) X10*3/uL Reeves # (Auto) 0.8 (0.1-1.2) X10*3/uL Eos # (Auto) 0.2 (0.0-0.4) X10*3/uL Baso # (Auto) 0.1 (0.0-0.2) X10*3/uL Abs Immat Gran (auto) 0.03 (0.00-0.03) X10*3/uL Absolute Neuts (auto) 5.6 (2.0-8.3) x10*3/uL Absolute Nucleated RBC 0.000 (0.0-0.012) X10*3/uL Nucleated RBC % (auto) 0.0 (0.0-0.2) /100WBC Sodium 140 (135-145) mmol/L Potassium 4.0 (3.3-5.1) mmol/L Chloride 103 (96-108) mmol/L Carbon Dioxide 33 H (22-29) mmol/L Anion Gap 8 L (12-20) BUN 13 (9-16) mg/dL Creatinine 0.88 (0.5-1.4) mg/dL Estim Creat Clear Calc 124.0 Estimated GFR > 60 Random Glucose 122 H (60-115) mg/dL Calcium 9.5 (8.4-10.2) mg/dL Troponin I High Sens < 2.7 < 2.7 (<3.5-35.0) ng/L Urine Color Yellow Urine Appearance Clear Urine pH 6.5 (5.0-9.0) Ur Specific [place] <= 1.005 (1.005-1.025) Urine Protein Negative (Neg-Trace) mg/dL Urine Glucose (UA) Negative (Negative) mg/dL Urine Ketones Negative (Negative) mg/dL Urine Blood Negative (Negative) Urine Nitrite Negative (Negative) Ur Leukocyte Esterase Negative (Negative) Independent Interpretation I performed an independent interpretation of an: EKG Interpretation: I reviewed interpreted the electrocardiogram months normal sinus rhythm rate 67 ST-T segments are isoelectric PVCs Independent Historian Clinical information obtained from an independent historian. History obtained from or confirmed by: Spouse Discharge Plan Discharge Clinical Impression: Palpitation Patient Disposition: Home, Self-Care Instructions: Heart Palpitations (DC) Additional Instructions: New been evaluated for palpitation your blood work for heart attack was negative x2, we will refer you to cardiology for follow-up return to the emergency room if you worse Prescriptions: No Action omeprazole 20 mg capsule,delayed release(DR/EC) 20 mg PO DAILY Qty: 90 1RF losartan-hydrochlorothiazide 50-12.5 mg tablet 1 tab PO DAILY 90 Days Qty: 90 1RF Zyrtec 10 mg capsule 10 mg PO DAILY PRN (Reason: Allergy Symptoms) Referrals: David Hugo MD [Physician] - 5 days Stand Alone Forms: Work/School Release Print Language: Yakut
[2024-05-23 09:15] LABS: MANUAL DIFF FLAG NO
[2024-05-23 09:20] LABS: Basophils Absolute Auto 0.1 X10*3/uL (0.0-0.2); Basophils Percent Auto 0.7 % (0-2); Eosinophils Absolute Auto 0.2 X10*3/uL (0.0-0.4); Eosinophils Percent Auto 2.4 % (0-4); Hematocrit 40.5 % (42.0-52.0); Hemoglobin 13.6 g/dl (14.0-18.0); Imm Gran Abs Auto 0.03 X10*3/uL (0.00-0.03); Imm Gran Pct Auto 0.3 % (0.0-0.4); Lymphocytes Absolute Auto 2.5 X10*3/uL (1.2-4.9); Lymphocytes Percent Auto 27.2 % (20-40); Mean Corpuscular HGB Conc 33.6 g/dl (31.0-36.0); Mean Corpuscular Hemoglobin 29.8 pg (27.0-33.0); Mean Corpuscular Volume 88.6 fL (80.0-98.0); Mean Platelet Volume 10.9 fL (9.4-12.4); Monocytes Absolute Auto 0.8 X10*3/uL (0.1-1.2); Monocytes Percent Auto 8.6 % (2-11); Neutrophils Absolute Auto 5.6 x10*3/uL (2.0-8.3); Neutrophils Percent Auto 60.8 % (45-73); Platelet Count 210 X10*3/uL (160-400); Red Blood Count 4.57 X10*6/uL (4.60-5.80); Red Cell Distribution Width 12.2 % (11.0-16.0); White Blood Count 9.2 X10*3/uL (4.8-10.8)
[2024-05-23 09:31] LABS: Anion Gap 8 (12-20); Blood Urea Nitrogen 13 mg/dL (9-16); Calcium 9.5 mg/dL (8.4-10.2); Carbon Dioxide 33 mmol/L (22-29); Chloride 103 mmol/L (96-108); Estimated Glomerular Filt Rate > 60; Glucose Random 122 mg/dL (60-115); Sodium 140 mmol/L (135-145)
[2024-05-23 09:39] VITALS: BP 113/71; PULSE 60; RESP 12; O2SAT 96
[2024-05-23 09:39] LABS: Troponin-I High Sensitivity < 2.7 ng/L (<3.5-35.0)
[2024-05-23 11:03] LABS: Troponin-I High Sensitivity < 2.7 ng/L (<3.5-35.0)
[2024-05-23 11:39] VITALS: BP 119/71; PULSE 56; RESP 14; TEMP 36.6; O2SAT 98
[2024-05-23 11:49] LABS: Appearance Urine Clear; Color Urine Yellow; Glucose Urine UA Negative (Negative); Leukocyte Esterase Urine Negative (Negative); Nitrite Urine Negative (Negative); PH 6.5 (5.0-9.0); Specific Gravity - Urine <= 1.005 (1.005-1.025); Urine Blood Negative (Negative); Urine Ketones Negative (Negative); Urine Protein Negative (Neg-Trace)
[2024-05-23 12:36] VITALS: BP 119/71; PULSE 56; RESP 14; TEMP 36.6; O2SAT 98
== END 2024-05-23 12:41 | disposition home or self-care (01) ==
PROVIDERS: Emergency Provider Emergency Medicine; PCP Physician Assistant
DX: R00.2 Palpitations (principal); R06.02 Shortness of breath; I10 Essential (primary) hypertension; E78.9 Disorder of lipoprotein metabolism, unspecified; Z79.899 Other long term (current) drug therapy
CPT/HCPCS: 36415; 71045; 80048; 81003; 84484; 85025; 93005; 99283; 99284

== ENCOUNTER 2024-06-08 13:18 | Outpatient (AMB) | payer BC, SELFPAY ==
[2024-06-08 13:39] VITALS: BP 144/88; PULSE 83; O2SAT 98; BMI 31.4
--- NOTE | 2024-06-08 13:39 | A.OFFPC_ITS ---
Vital Signs 06/08/24 13:39 06/08/24 13:59 Height 6 ft Weight 231 lb 4 oz BMI 31.4 BP 144/88 H 120/70 Blood Pressure Location Lt brachial Position Sitting Pulse 83 Pulse Source Pulse Oximeter Pulse Oximetry (%) 98 Oxygen Delivery Method Room Air Intake Visit Reasons: Annual exam Intake Note: Patient is here today for a physical. Rn Telemetry Required: No Accompanied by: Self / Same As Patient Allergies No Known Allergies [No Known Allergies*] Allergy (Verified 06/08/24 13:42) Medication List - Last Reconciled 06/08/24 by Broderick Gaytan PA-C cetirizine (Zyrtec) 10 mg PO DAILY PRN losartan-hydrochlorothiazide 50-12.5 mg 1 tab PO DAILY 90 days omeprazole 20 mg PO DAILY Tobacco use date assessed: 06/08/24 Dental Screening Dental Screen Date: 06/08/24 Did you have a dental visit in the last 12 months?: Yes Did you have a dental problem in the last 6 months where you did not have access to dental care?: No Was dental information given to patient?: Patient has dentist HPI Annual exam HPI Details atient is a 52-year-old male here today for routine annual physical concerns--> During the emergency room visit, the patient was informed of a dysrhythmia detected via monitor, although specifics were not detailed in the conversation. The patient schedules a Holter monitor for further examination, and reports elevated blood pressure at the ER, although his baseline readings are usually lower. Past medical history is notable for mild hypertension, for which he is on Losartan. In addition to cardiovascular symptoms, he is experiencing bloating and belching, suggesting possible ongoing GERD, notwithstanding current management with omeprazole. Past diagnostic workup revealed a colonic polyp with precancerous features excised in 2021, and the patient is advised for a repeat colonoscopy in three years. He reports taking multiple nighttime medications but has been advised to modify his omeprazole regimen to mornings, given concerns about medication timing and effectiveness. Hypertension : Blood pressure slightly elevated today in office. He has transitioning to losartan hydrochlorothiazide and blood pressures seem to have been better. He otherwise denies any headaches, shortness of breath or dizziness. As above had an episode of heart palpitations and presyncopal episode which led him to an ER visit. l Colonic polyp: Recently had gotten colonoscopy--> tubulovillous adenoma, needs repeat colonoscopy in 3 years 2024 Vaccine: Up-to-date with COVID vaccine flu vaccine, tetanus and pneumonia vaccines. PFSH Medical History Palpitations Surgical History Hx of esophagogastroduodenoscopy Hx of colonoscopy History of nasal surgery History of tooth extraction Family History Father FH: brain cancer Mother FH: HTN (hypertension) Afib Social History Housing: House Alcohol intake: current Alcohol intake frequency: 0-2 drinks per day Alcohol type: beer and hard liquor Patient Tobacco Use Status: Former Tobacco user Tobacco use type: Cigarette e-Cigarette/Vaping Use: Never Used service: No Current occupational status: employed Current occupation: [employer] ( [employer]) Cognitive needs: No Hearing needs: No Vision needs: No Questionnaire PHQ-9 Over the last 2 weeks, how often have you been bothered by any of the following problems? 1. Little interest or pleasure in doing things: not at all 2. Feeling down, depressed, or hopeless: not at all 3. Trouble falling or staying asleep, or sleeping too much: not at all 4. Feeling tired or having little energy: not at all 5. Poor appetite or overeating: not at all 6. Feeling bad about yourself - or that you are a failure or have let yourself or your family down: not at all 7. Trouble concentrating on things, such as reading the newspaper or watching television: not at all 8. Moving or speaking so slowly that other people could have noticed. Or the opposite - being so fidgety or restless that you have been moving around a lot more than usual: not at all 9. Thoughts that you would be better off or of hurting yourself in some way: not at all Total score: 0 Depression Screening Interpretation: Negative Depression Screening Done: Yes 86531 - PHQ-9 Billing: Yes Source: Developed by Drs. Jarvis L. Robin, Man Soria and colleagues, with an educational juli from [employer]. Thrive Questionnaire Date Thrive assessed: 06/08/24 I am a: Patient What is your living situation today?: I have a steady place to live Within the past 12 months, did the food you bought not last and you didn't have the money to get more?: Never true Within the past 12 months, did you worry whether your food would run out before you got money to buy more?: Never true Do you have trouble paying for medicines?: No Do you have trouble getting transportation to medical appointments?: No Do you have trouble paying your heating and electricity bill?: No Do you have trouble taking care of your child, family member or friend?: No Do you have trouble with day-to-day activities such as bathing, preparing meals, shopping, managing finances, etc.?: No Are you currently unemployed and looking for a job?: No Are you interested in more education?: No Please select the resources that you would like help with: None Currently or been in a relationship where the following occur: No concerns reported THRIVE Score: 0 AUDIT C Alcohol Use Questionnaire (AUDIT-C) 1. How often do you have a drink containing alcohol?: 4 or more times a week 2. How many drinks containing alcohol do you have on a typical day when you are drinking?: 1 or 2 3. How often do you have six or more drinks on one occasion?: Less than monthly Total Score: 5 MERRY-7 AMB Questionnaire MERRY-7 Date MERRY - 7 assessed: 06/08/24 Feeling nervous, anxious, or on edge: 1 = Several days Not being able to stop or control worryin = Not at all Worrying too much about different things: 0 = Not at all Trouble relaxin = Not at all Being so restless that it is hard to sit still: 0 = Not at all Becoming easily annoyed or irritable: 0 = Not at all Feeling afraid as if something awful might happen: 1 = Several days Total MERRY-7 score (0-4 normal; 5-9 mild; 10-14 moderate; 15-21 severe): 2 Source: Developed by Mary Syed Kurt Kroenke and colleagues, with an educational juli from [employer]. MERRY-7 Assessment Billing MERRY-7 Assessment Tool: MERRY-7 Assessment 37489 Review of Systems Const Denies body aches, Denies chills, Denies excessive sweating, Denies fatigue, Denies fever(s) and Denies headache(s) Eyes Denies blurry vision ENT Denies dysphagia, Denies vertigo, Denies dizziness, Denies headache(s), Denies hearing loss and Denies tinnitus Card Denies chest pain, Denies chest pain with activity, Denies syncope, Denies irregular heart rhythm and Denies dyspnea Resp Denies chest congestion, Denies cough, Denies hemoptysis, Denies dyspnea and Denies wheezing GI Denies abdominal pain, Denies melena, Denies hematochezia, Denies coffee ground emesis, Denies dysphagia, Denies diarrhea, Denies nausea and Denies vomiting Denies difficulty urinating, Denies dysuria, Denies urinary frequency, Denies urinary hesitancy and Denies urinary urgency Musc Denies arthralgias, Denies limited range of motion, Denies muscle cramps and Denies muscle weakness Skin/Breast Denies rash and Denies skin ulcer Neuro Denies Abnormal speech present, Denies confusion, Denies vertigo, Denies dizziness, Denies syncope, Denies headache(s), Denies memory loss and Denies seizure-like activity Psych Denies anxiety, Denies confusion, Denies depression, Denies memory loss, Denies panic attacks and Denies paranoia Endo Denies excessive sweating, Denies fatigue, Denies flushing, Denies polydipsia and Denies polyuria Aller/Immun Denies wheezing Physical exam (Primary Care) Vital Signs: Last Vital Signs Pulse 83 06/08/24 13:39 BP 120/70 06/08/24 13:59 Pulse Ox 98 06/08/24 13:39 Oxygen Delivery Method Room Air 06/08/24 13:39 BMI result Body Mass Index 31.4 Tobacco/Smoking Status: Tobacco use Status Tobacco use date assessed 06/08/24 06/08/24 13:40 Patient Tobacco Use Status Former Tobacco user 06/08/24 13:40 Tobacco use type Cigarette 06/08/24 13:40 e-Cigarette/Vaping Use Never Used 06/08/24 13:40 PHQ-9: PHQ-9 Score PHQ-9: Total score 0 06/08/24 15:21 Depression Screening Interpretation: Negative Thrive Assessment: Date of Thrive Assessment Date Thrive assessed 06/08/24 06/08/24 13:40 Currently or been in a relationship where the following occur: No concerns reported Const General: cooperative, comfortable, no acute distress, alert and awake; No confusion Orientation/consciousness: oriented to person, oriented to place, patient oriented x3 and No confusion HENMT Head: Yes normocephalic Ears: external ears normal and TM's normal bilaterally Face and sinus: No sinus tenderness Mouth: Normal oral and palatal mucosa present and tongue normal Teeth and gingiva: dentition normal and gingiva normal Throat: Yes posterior oropharynx normal, Yes tonsils normal and Yes uvula midline Eyes Conjunctivae: conjunctivae normal Sclerae: sclerae normal Pupils: Equal, round and reactive pupils present EOM: EOMs intact bilaterally Direct Ophthalmoscopy: No no photophobia Neck Neck: Yes no lymphadenopathy, No tender and Yes no JVD Thyroid: Thyroid normal Carotids: no bruits Chest Chest palpation & inspection: no tenderness Resp Effort & Inspection: normal respiratory effort, no audible wheezes, not labored and no stridor Auscultation: no crackles, no rales, no rhonchi and no wheezes Cardio Jugular venous distension: no JVD Rate: regular rate, not bradycardic and not tachycardic Rhythm: regular rhythm Bruits: no carotid bruits Peripheral pulses: Peripheral pulses 2+ throughout GI Inspection: Yes normal to inspection, No abdominal wall ecchymosis and No visible herniation Palpation (GI): Soft to palpation, nontender, no guarding, not rigid and No hepatosplenomegaly present Auscultation: normoactive bowel sounds General: Yes no CVA tenderness Back/Spine/Pelvis Back: no CVA tenderness and No back tenderness Cervical Spine: cervical ROM normal Thoracic/Lumbar Spine: thoracic and lumbar spine normal to inspection, straight leg raise negative bilaterally, No thoraco-lumbar ROM limited and No lumbar spinal tenderness Skin Lesions: no lesions Rashes: no rashes Wounds: no wounds Neuro General: oriented to person, oriented to place, patient oriented x3, CN's II-XI intact bilaterally and No confusion Cranial nerves: Yes Equal, round and reactive pupils present and Yes Normal accommodation reflex present Cognition (Neuro): normal cognition Speech: No Abnormal speech present Gait exam (Neuro): Normal gait present Motor exam (neuro): 5/5 motor strength present throughout Extrem Right upper extremity: full ROM; no cyanosis Left upper extremity: full ROM; no cyanosis Right lower extremity: no edema Left lower extremity: no edema Psych Appearance: grossly normal Mental Status: mental status grossly normal Affect: normal affect Attitude: cooperative Thought process: Normal thought process present Office Procedures Flu Questionnaire Does the patient have a severe egg allergy?: No Does the patient have severe life threatening allergies?: No Does the patient have a fever or illness today?: No Has the patient ever had Guillain-[place] Syndrome?: No Has the patient ever had any past reaction to a flu shot?: No Results AMB Hemoglobin A1c AMB Hemoglobin A1c 6.0 % Last Edit by KASSIE Ramirez on 06/08/24 13:43 Immunizations Fluarix Triv [id number] (PF) 45 mcg (15 mcg x 3)/0.5 mL IM syringe Performing Provider: Broderick Gaytan PA-C [facility] Administered by: KASSIE Ramirez on 06/08/24 13:40 Dose Route Admin Location Dispensed Lot Number Expiration Date [facility] [employer] Install[employer] 0.5 mL IM Left Deltoid 0.5 mL [id number] 01/23/25 [id number] [employer] VIS Given Date VIS Provided VIS Publication Date 06/08/24 Single Vaccine 21 Eligibility Eligibility Date Funding Source Not [facility] Eligible 06/08/24 Private Results Reviewed Results Reviewed: Laboratory Last Values Hgb A1c (Clinic) 6.0 % (4.0-6.0) 06/08/24 13:42 Coding Level of Care Code Est Pt Prev Care 40-64y(30232) Diagnoses Annual physical exam Z00.00 Borderline high cholesterol E78.9 Heart palpitations R00.2 Primary hypertension I10 Hypertension type: primary hypertension Class 1 obesity E66.811 Chronic GERD K21.9 Additional Codes MERRY-7 Assessment Billing - MERRY-7 Assessment Tool: MERRY-7 Assessment 06802 ([id number]) PHQ-9 - 78666 - PHQ-9 Billing: Yes ([id number]) Assessment & Plan Assessment & Plan (1) Annual physical exam: Code(s): Z00.00 - Encounter for general adult medical examination without abnormal findings Category: Medical Plan: As per HPI (2) Borderline high cholesterol: Code(s): E78.9 - Disorder of lipoprotein metabolism, unspecified Category: Medical Plan: Dietary recommendations emphasized: limit animal fats and incorporate cardiovascular exercise. (3) Heart palpitations: Code(s): R00.2 - Palpitations Category: Medical Plan: Proceed with scheduled Holter monitor to assess rhythm irregularity. Referral to cardiology is anticipated once data is collected. (4) HTN (hypertension): Code(s): I10 - Essential (primary) hypertension Category: Medical Qualifiers: Hypertension type: primary hypertension Qualified Code(s): I10 - Essential (primary) hypertension Plan: Continue Losartan; monitor blood pressure at home and consider lifestyle modifications. Goal BP to be below 140/ 90 (5) Class 1 obesity: Code(s): E66.811 - Obesity, class 1 Category: Medical Plan: Patient does understand his BMI is over 30 will continue working on lifestyle modifications and dietary modifications to reduce his weight (6) Chronic GERD: Comment: Will increase Omeprazole 20 mg bid x 8 wks- avoid culprits Code(s): K21.9 - Gastro-esophageal reflux disease without esophagitis Category: Medical Plan: Advise switching omeprazole administration to morning on an empty stomach for optimal efficacy. Consider alternative PPIs if symptoms persist. Orders: Orders Influenza [id number] Immunization 06/08/24 Z23 - Encounter for immunization AMB Hemoglobin A1c 06/08/24 Z13.1 - Encounter for screening for diabetes mellitus Medications: Refilled omeprazole 20 mg PO DAILY 90 caps 1RF
[2024-06-08 13:59] VITALS: BP 120/70
== END 2024-06-08 14:04 | disposition home or self-care (01) ==
PROVIDERS: PCP Physician Assistant; Visit Provider Physician Assistant
DX: Z00.00 Encounter for general adult medical examination without abnormal findings (principal); E78.9 Disorder of lipoprotein metabolism, unspecified; Z68.31 Body mass index [BMI] 31.0-31.9, adult; E66.811 Obesity, class 1; R00.2 Palpitations; I10 Essential (primary) hypertension; K21.9 Gastro-esophageal reflux disease without esophagitis

== ENCOUNTER → 2024-06-08 13:18 | Outpatient (BNVA) | payer BC, SELFPAY | PROVIDERS: PCP Physician Assistant; Visit Provider Physician Assistant | DX: Z00.00 Encounter for general adult medical examination without abnormal findings (principal); Z23 Encounter for immunization; E78.9 Disorder of lipoprotein metabolism, unspecified; R00.2 Palpitations; I10 Essential (primary) hypertension; E66.811 Obesity, class 1; Z68.31 Body mass index [BMI] 31.0-31.9, adult; K21.9 Gastro-esophageal reflux disease without esophagitis; Z79.899 Other long term (current) drug therapy | CPT/HCPCS: 83036; 90471; 90656; 96127 ==

== ENCOUNTER → 2024-06-15 08:01 | Outpatient (REF) | payer BC, SELFPAY ==
--- NOTE | 2024-06-15 08:06 | HM_ITS ---
* Total monitoring time 5 days. * Underlying rhythm is sinus with an average rate of 80/Min. * Frequent ventricular ectopy with a burden of 16%. No significant runs. * No significant pauses or high-grade AV blocks. * Stomach cramps in patient diary correlates with PVCs. MTDD
== END ==
LOC: HO.CARD 08:01
PROVIDERS: PCP Physician Assistant; Visit Provider Physician Assistant
DX: R00.2 Palpitations (principal)
CPT/HCPCS: 93242

== ENCOUNTER → 2024-06-15 08:06 | Outpatient (BNV) | payer BC, SELFPAY | PROVIDERS: PCP Physician Assistant; Visit Provider Internal Medicine | DX: I49.3 Ventricular premature depolarization (principal) | CPT/HCPCS: 93244 ==

== ENCOUNTER 2024-07-11 13:04 | Outpatient (REF) | payer BC, SELFPAY ==
--- NOTE | ~2024-07-11 | XR_ITS ---
EXAMINATION: XR CHEST CLINICAL INFORMATION: R05.9 - Cough, unspecified COMPARISON: 05/23/2024, 10/15/2021 TECHNIQUE: 2 views of the chest were obtained. FINDINGS: Lung volumes are low. There is no gross pneumothorax. Heart size is normal. Asymmetric elevation of the right lung base redemonstrated. There is no gross pneumothorax. Hazy opacities in the mid to lower left lung. No significant pleural effusion. Mild degenerative changes in the thoracic spine. XR/XR chest 2V IMPRESSION: 1. Hazy opacities in the mid to lower left lung. 2. Redemonstration of asymmetric elevation of the right lung base this study was presented today to July 12, 2024 for interpretation. Stat results provided at this time as requested by referring provider. Electronically signed by: Erica Watkins MD 07/12/2024 08:33 AM [facility]ST
== END 2024-07-11 13:05 | disposition home or self-care (01) ==
LOC: HO.XRAY 13:04
PROVIDERS: PCP Physician Assistant; Visit Provider Physician Assistant
DX: R05.9 Cough, unspecified (principal)
CPT/HCPCS: 71046

== ENCOUNTER → 2024-07-22 13:21 | Outpatient (REF) | payer BC, SELFPAY ==
--- NOTE | ~2024-07-22 | XR_ITS ---
EXAMINATION: XR CHEST CLINICAL INFORMATION: Cough. COMPARISON: Most recent chest radiograph dated 07/11/2024. TECHNIQUE: 2 views of the chest were obtained. FINDINGS: The lungs are clear. The cardiomediastinal silhouette is normal in size. There is no pleural effusion or pneumothorax. No acute osseous abnormality. XR/XR chest 2V IMPRESSION: No acute cardiopulmonary findings. Electronically signed by: Scar Almonte MD 07/22/2024 02:18 PM [facility]ST
--- NOTE | 2024-07-22 13:42 | CA_ITS ---
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 The visually estimated ejection fraction is between 55-60%. Spectral Doppler is indicative of a normal filling pattern. Right Ventricle Normal right ventricular cavity size and systolic function. Atria The left atrium is likely dilated. There is lipomatous hypertrophy of the interatrial septum. There is no evidence of interatrial shunt. The right atrium is normal in size. Aortic Valve The aortic valve structure and function is likely normal. There is no aortic valve stenosis. There is no aortic valve regurgitation. Mitral Valve Normal mitral valve structure and function. There is trace mitral valve regurgitation. There is no mitral valve stenosis. Pulmonic Valve The pulmonic valve is likely normal. There is trace to mild pulmonic valve regurgitation. Tricuspid Valve Normal tricuspid valve structure. Tricuspid regurgitation envelope is inadequate for calculation of right ventricular systolic pressure. Normal right atrial pressure. Great Vessels All visible segments of the aorta are normal in size. The pulmonary artery was not well visualized. Venous The inferior vena cava is normal in size and collapses greater than 50% with inspiration. Pericardium/Pleural There is no evidence of pericardial effusion. Measurements 2D Linear Measurements IVSd: 0.95 0.6-0.9/0.6-1.0 cm LVIDd: 5.85 3.9-5.3/4.2-5.9 cm LVIDd Index: 2.59 2.4-3.2/2.2-3.1 cm/m2 LVIDs: 3.45 2.0-3.6 cm LVPWd: 0.96 0.7-1.1 cm LA Diam: 4.40 2.7-3.8/3.0-4.0 cm LAIDs Index: 1.95 1.5-2.3 cm/m2 LV Mass: 277.96 67-162/88-224 g LV Mass Index: 122.99 43-95/49-115 g/m2 LVOT Diam: 2.30 3.0+(-)1.3 cm Mitral Valve MV Pk E: 0.72 MV PK A: 0.57 MV Decel Time: 210.00 E/A: 1.30 E'Lateral: 9.25 E'Medial: 5.11 E/E' Med: 14.20 E/E' Lat: 7.80 PHT: 62.00 MVA PHT: 3.55 Decel Nicol[place]: 3.44 Aortic Valve AoV Pk Júnior: 1.32 AoV Mn Júnior: 0.88 AoV VTI: 0.27 AoV Pk Grad: 7.00 Aov Mn Grad: 4.00 ELBA Cont.VTI: 2.65 LVOT LVOT Pk Júnior: 0.84 LVOT Mn Júnior: 0.63 LVOT VTI: 0.17 LVOT Pk Grad: 3.00 LVOT Mn Grad: 2.00 LVOT Diam: 2.30 LVOT Area: 4.15 Diastolic Function MV Pk E: 0.72 MV Pk A: 0.57 E/A: 1.30 E'Medial: 5.11 E/E' Med: 14.20 E' Laterial: 9.25 E/E' Lat: 7.80 Right Ventricle TAPSE (mm): 18.90 TVS' Júnior: 13.90 Tricuspid Valve RA Press: 3.00 Great Vessels Aorta Sinus of Valsalva: 3.21 2.0-3.[address] [place]: 2.85 1.7-3.4 cm Ao Asc: 3.20 2.1-3.4 cm Updated in Other Vendor System with Status of Final Milton Oliver MD electronically signed on 07/22/2024 4:01:01 PM with status of Final
== END ==
LOC: HO.CARD 13:21
PROVIDERS: PCP Physician Assistant; Visit Provider Physician Assistant
DX: R55 Syncope and collapse (principal); R05.9 Cough, unspecified
CPT/HCPCS: 71046; 93306

== ENCOUNTER → 2024-07-22 13:42 | Outpatient (BNV) | payer BC, SELFPAY | PROVIDERS: PCP Physician Assistant; Visit Provider Internal Medicine Cardiovascular Disease | DX: R55 Syncope and collapse (principal) | CPT/HCPCS: 93306 ==

== ENCOUNTER 2024-10-17 10:28 | Outpatient (AMB) | payer BC, SELFPAY ==
[2024-10-17 10:33] VITALS: BP 100/50; PULSE 75; BMI 31.7
--- NOTE | 2024-10-17 10:33 | A.OFFVIS_ITS ---
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 He has had palpitations for the last few months. He has undergone workup through his own PCP and that had revealed PVCs. Patient himself denies any history of coronary disease or myocardial infarction or cardiomyopathy or in fact any other cardiac issues. He has got hypertension on medications. He states that he can feel symptoms of chest fluttering at different times. Somewhat random in occurrence. During those times, he also feels a tightness in the back. However, not clear if it gets anxious during those times causing back tightness or not. He does not have any clear-cut anginal-type symptoms. He does admit to drinking alcohol regularly. PENDING SALE TO [facility] Medical History (Updated 10/17/24 @ 10:50 by James Jefferson MD) Palpitations Surgical History (Updated 10/17/24 @ 10:37 by Le Xiong CMA) H/O shoulder surgery Hx of esophagogastroduodenoscopy Hx of colonoscopy History of nasal surgery History of tooth extraction Family History Father FH: brain cancer Mother FH: HTN (hypertension) Afib Social History Housing: House Alcohol intake: current Alcohol intake frequency: 0-2 drinks per day Alcohol type: beer and hard liquor Patient Tobacco Use Status: Former Tobacco user Tobacco use type: Cigarette e-Cigarette/Vaping Use: Never Used service: No Current occupational status: employed Current occupation: [employer] ( [place]) Cognitive needs: No Hearing needs: No Vision needs: No Review of Systems Const Denies chills, Denies daytime sleepiness, Denies fatigue, Denies fever(s), Denies poor appetite, Denies snoring, Denies stops breathing during sleep, Denies weakness, Denies weight gain and Denies weight loss Eyes Denies loss of vision ENT Denies dizziness and Denies hearing loss Card Denies chest pain, Reports irregular heart rhythm, Denies claudication, Denies leg edema, Denies lightheadedness, Denies palpitations, Denies dyspnea on exertion and Denies orthopnea Resp Denies cough, Denies excessive phlegm production, Denies dyspnea on exertion, Denies snoring and Denies wheezing GI Denies abdominal pain, Denies hematochezia, Denies change in bowel habits, Denies nausea and Denies vomiting Denies dysuria and Denies urinary frequency Musc Denies arthralgias, Denies muscle weakness, Denies numbness and Denies other Skin/Breast Denies nail changes and Denies rash Neuro Denies Abnormal speech present, Denies dizziness, Denies loss of vision, Denies memory loss, Denies numbness and Denies weakness Psych Denies depression and Denies memory loss Endo Denies fatigue and Denies palpitations Navin/Lymph Denies easy bruising Aller/Immun Denies wheezing Physical Exam Vital Signs: Last Vital Signs Pulse 75 10/17/24 10:33 BP 100/50 L 10/17/24 10:33 BMI result Body Mass Index 31.7 Const General: comfortable and no acute distress Orientation/consciousness: patient oriented x3 HEENT Other: Unremarkable Head: Yes normal to inspection Neck Neck: Yes normal visual inspection Chest Chest palpation & inspection: normal inspection of the chest Resp Auscultation: clear to auscultation bilaterally Cardio Palpation: normal PMI Heart sounds: S1 normal heart sound present, S2 normal heart sound present, no gallops, no murmurs and no rubs GI Palpation (GI): Soft to palpation Back/Spine/Pelvis Other: unremarkable Skin General skin exam: no rashes or lesions noted Neuro General: patient oriented x3 Speech: No Abnormal speech present Extrem General: Yes normal to inspection Psych Mental Status: mental status grossly normal Assessment & Plan Assessment & Plan (1) PVC (premature ventricular contraction): Code(s): I49.3 - Ventricular premature depolarization Category: Medical (2) HTN (hypertension): Code(s): I10 - Essential (primary) hypertension Category: Medical Qualifiers: Hypertension type: primary hypertension Qualified Code(s): I10 - Essential (primary) hypertension (3) Obese: Code(s): E66.9 - Obesity, unspecified Category: Medical Qualifiers: Obesity type: due to excess calories Obesity classification: adult class 1 (BMI 30 - 34.9) Serious obesity comorbidity presence: without serious comorbidity Body mass index: BMI 30.0-30.9 Qualified Code(s): E66.09 - Other obesity due to excess calories; Z68.30 - Body mass index [BMI] 30.0-30.9, adult Plan EKG from April 2024 with underlying sinus rhythm at 67/Min; PVCs; normal LA and corrected QT. no ischemic changes. In the EKGs prior to that from 2021, 2017 there are no PVCs. Holter monitor shows underlying sinus rhythm with an average rate of 80/Min. Frequent PVCs with a burden of 16%. Stomach cramps in patient diary correlating with PVCs. Echocardiogram with LVEF of 55-60%. Normal diastolic filling. Possible left atrial dilatation. No significant valvular findings. Available high sensitivity troponins from 2021, 2023 are within normal limits. Overall, palpitations, frequent PVCs on Holter. Pathophysiology of PVCs discussed in detail. In his case, could be related to weight, alcohol excess, possible sleep apnea. Main recommendation would be to attempt to lose weight. Cut back on alcohol excess. We will check a home sleep study for obstructive sleep apnea. Ischemic evaluation with stress test. We will also look for any VT episodes during exercise. Otherwise, we will consider cardiac MRI in the future. For medications, nothing for now but possible beta-maryellen use in the future. With regard to hypertension, blood pressure is on the lower side today. On losartan/hydrochlorothiazide. He believes it may be related to lower stress level from jail. If it stays on the lower side, may need to decrease his meds. We will follow up after testing. In the interim, he will call with any concerns or seek emergency help as required. Orders: Orders CA echo stress exercise Today I49.3 - Ventricular premature depolarization RT home sleep study Today G47.33 - Obstructive sleep apnea (adult) (pediatric), I49.3 - Ventricular premature depolarization Coding Level of Care Code New Pt Level 4 (97148) Complex EM visit Add On G2211 Diagnoses PVC (premature ventricular contraction) I49.3 Primary hypertension I10 Hypertension type: primary hypertension Class 1 obesity due to excess calories without serious comorbidity with body mass index (BMI) of 30.0 to 30.9 in adult E66.09; Z68.30 Obesity type: due to excess calories Obesity classification: adult class 1 (BMI 30 - 34.9) Serious obesity comorbidity presence: without serious comorbidity Body mass index: BMI 30.0-30.9
== END 2024-10-17 10:56 | disposition home or self-care (01) ==
LOC: HO.HCS 10:29
PROVIDERS: PCP Physician Assistant; Visit Provider Internal Medicine
DX: I49.3 Ventricular premature depolarization (principal); I10 Essential (primary) hypertension; E66.09 Other obesity due to excess calories; Z68.30 Body mass index [BMI] 30.0-30.9, adult
CPT/HCPCS: 99214

== ENCOUNTER → 2024-10-17 10:28 | Outpatient (BNVA) | payer BC, SELFPAY | PROVIDERS: PCP Physician Assistant; Visit Provider Internal Medicine ==

== ENCOUNTER → 2024-11-28 10:54 | Outpatient (REF) | payer BC, SELFPAY ==
--- NOTE | 2024-11-28 10:58 | CA_ITS ---
Acquisition Time: 2024-11-28 11:18:34 Total Exercise Time: 00:07:58 Test Indications: Palpitations,Palpitations Medications: Protocol: RAJINDER Max HR: 150 BPM 89% of Pred: 167 BPM Max BP: 160/60 mmHG Max Work Load: 10.0 METS Exercise stress test with exercise 7 mins 58 secs of Rajinder Protocol, achieving 89% MPHR, with reports of SOB, no chest pain, with isolated PVCs and very frequent PACs, with normotensive response to exercise. Without EKG changes meeting criteria for ischemia, nonspecific ST/T waves at baseline. In recovery, breathing returned to basleine. Echo images obtained by tech at rest and post peak exercise. Definity contrast utilized. Test reviewed with Dr. Jefferson. Referred By: James Jefferson Electronically Signed By: Jordy Burns
--- OUTSIDE RECORDS SUMMARY | 2024-11-28 12:32 | XMS_ITS | Clinical Summary ---
Author Organization [facility] Address [address] [place] [address] Care Team Providers Care Reel Film Inspector Name Role Phone Unavailable Primary Care Provider Unavailabl e Immunizations Immunization Administration Dates Next Due Covid-19 mRNA Primary Series Vaccine - Moderna 0.5 mL Full Dose 09/27/2020,08/30/2020 Social History Tobacco Use Types Packs/Day Years Used Date Smoking Tobacco: Never Assessed Sex and Gender Information Value Date Recorded Sex Assigned at Not on file Legal Sex Male 6:37 PM EDT Gender Identity Not on file Sexual Orientation Not on file Plan of Treatment Health Maintenance Due Date Last Done Comments Hepatitis C Virus Screening 1970 HIV Screening 10/13/1984 DTaP/Tdap/Td Vaccines (1 - Tdap) 10/13/1990 Hepatitis B Vaccines (1 of 3 - 19+ 3-dose series) 10/13/1990 Pneumococcal Vaccines 50+ (1 of 1 - PCV) 10/13/2021 Zoster (Shingles) Vaccine (1 of 2) 10/13/2021 COVID-19 Vaccine (3 - season) 03/27/202410/2020, 08/30/2020
--- OUTSIDE RECORDS SUMMARY | 2024-11-28 12:32 | XMS_ITS | Encounter Summary ---
Author Organization [facility] Address [address] [place] [address] Care Team Providers Care Commercial Energy Rater Name Role Phone Unavailable Primary Care Provider Unavailabl e Encounter Details Date Type Department Care Team (Late st Contact Info) Description 06/14/2020 Lab Requisition EM LAB DOC PAO [address] [place] [phone] Gaudencio Matias PA-C [address] [place], [place] [phone] Encounter for laboratory testing for COVID-19 virus Social History Tobacco Use Types Packs/Day Years Used Date Smoking Tobacco: Never Assessed Sex and Gender Information Value Date Recorded Sex Assigned at Not on file Legal Sex Male 6:37 PM EDT Gender Identity Not on file Sexual Orientation Not on file documented as of this encounter Plan of Treatment Not on file documented as of this encounter Procedures Procedure Name Priority Date/Time Associated Diagnosis Comments (REPORT) SARS COV-2 RNA (COVID-19), QUAL Routine 06/14/2020 3:11 PM EST Encounter for laboratory testing for COVID-19 virus [ICD-10-CM] documented in this encounter Results * SARS CoV-2 RNA (COVID-19), Qual (06/14/2020 3:11 PM EST) SARS CoV 2 RNA, Qual NOT DETECTED NOT DETECTED 06/17/2020 9:00 PM EST [facility] Comment: A Not Detected (negative) test result for this test means that SARS- CoV-2 RNA was not present in the specimen above the limit of detection. A negative result does not rule out the possibility of COVID-19 and should not be used as the sole basis for treatment or patient management decisions. ??If COVID-19 is still suspected, based on exposure history together with other clinical findings, re-testing should be considered in consultation with public health authorities. Laboratory test results should always be considered in the context of clinical observations and epidemiological data in making a final diagnosis and patient management decisions. Please review the Fact Sheets and FDA authorized labeling available for health care providers and patients using the following websites: https://www.Fetch Plus[employer]Convercent/home/Covid-19/HCP/QuestLDT/ fact-sheet.html https://www.[employer]Convercent/home/Covid-19/Patients/QuestLDT/ fact-sheet.html ?? This test has been authorized by the FDA under an Emergency Use Authorization (EUA) for use by authorized laboratories. Due to the current public health emergency, [facility] is receiving a high volume of samples from a wide variety of swabs and media for COVID-19 testing. In order to serve patients during this public health crisis, samples from appropriate clinical sources are being tested. Negative test results derived from specimens received in non-commercially manufactured viral collection and transport media, or in media and sample collection kits not yet authorized by FDA for COVID-19 testing should be cautiously evaluated and the patient potentially subjected to extra precautions such as additional clinical monitoring, including collection of an additional specimen. Methodology: ??Nucleic Acid Amplification Test (NAAT) includes RT-PCR or TMA ?? Additional information about COVID-19 can be found at the [facility] website: www.Vive Unique.Convercent/Covid19. Microbiology Nasopharyngeal swab / Unknown 06/14/2020 3:11 PM EST 06/14/2020 3:11 PM EST [facility] - 06/17/2020 9:00 PM EST Performing Organization Information: ?Site ID: [id number] ?Name: [facility] ?Address: [address] [place] [address],[place] [address] ?Director: KAUSHAL ANDREWS MD [facility] at [facility] License number [id number] Gaudencio Matias PA-C BODY FLUIDS AND STOOLS OR DERABLES Final Result Performing Organization Address City/State/[facility] Co de Phone Number [facility] documented in this encounter Visit Diagnoses Diagnosis Encounter for laboratory testing for COVID-19 virus documented in this encounter
--- OUTSIDE RECORDS SUMMARY | 2024-11-28 12:32 | XMS_ITS | Encounter Summary ---
Author Organization [facility] Address [address] [place] [address] Care Team Providers Care Supply Coordinator Name Role Phone Unavailable Primary Care Provider Unavailabl e Encounter Details Date Type Department Care Team (Late st Contact Info) Description 04/27/2020 Lab Requisition EM LAB DOC PAO [address] [place] [phone] Gaudencio Matias PA-C [address] [place] [phone] Encounter for laboratory testing for COVID-19 virus [...] (REPORT) SARS COV-2 RNA (COVID-19), QUAL Routine 04/27/2020 9:08 AM EDT Encounter for laboratory testing for COVID-19 virus [ICD-10-CM] documented in this encounter Results * SARS CoV-2 RNA (COVID-19), Qual (04/27/2020 9:08 AM EDT) Pathologist [facility] SARS CoV 2 RNA, Qual NOT DETECTED NOT DETECTED 04/28/2020 9:00 PM EDT [facility] Comment: A Not Detected (negative) test result for this test means that SARS-CoV-2 RNA was not present in the specimen above the limit of detection. A negative result does not rule out the possibility of COVID-19 and should not be used as the sole basis for treatment or patient management decisions. If COVID-19 is still suspected, based on exposure history together with other clinical findings, re-testing should be considered in consultation with public health authorities. Laboratory test results should always be considered in the context of clinical observations and epidemiological data in making a final diagnosis and patient management decisions. REFERENCE RANGE: ??NOT DETECTED This patient specimen was tested using an FDA EUA pooling method. Negative results from pooled testing should not be treated as definitive. ??If the patient's clinical signs and symptoms are inconsistent with a negative result or results are necessary for patient management, then the patient should be considered for individual testing. Specimens with low viral loads may not be detected in sample pools due to the decreased sensitivity of pooled testing. Please review the Fact Sheets and FDA authorized labeling available for health care providers and patients using the following websites: https://www.PLDT.SocialSafe/home/Covid-19/HCP/QuestLDTP/ fact-sheet https://www.RevoDeals/home/Covid-19/Patients/QuestLDTP/ fact-sheet.html This test has been authorized by the FDA under an Emergency Use Authorization (EUA) for use by authorized laboratories. Due to the current public health emergency, [facility] is receiving a high volume of samples [...] Methodology: ??Nucleic Acid Amplification Test (NAAT) includes PCR or TMA ?? Additional information about COVID-19 can be found at the [facility] website: www.Overwatch.SocialSafe/Covid19. Microbiology Nasopharyngeal swab / Unknown 04/27/2020 9:08 AM EDT 04/27/2020 9:08 AM EDT Narrative [facility] - 04/28/2020 9:00 PM EDT Performing Organization Information: ?Site ID: [id number] ?Name: [facility] ?Address: [address] [place] [address] [address],[place] [address] ?Director: KAUSHAL ANDREWS MD [facility]formed at [facility] License number [id number] Gaudencio Matias PA-C BODY FLUIDS AND STOOLS OR DERABLES Final Result Performing Organization Address City/State/[facility] de Phone Number [facility] documented in this encounter Visit Diagnoses Diagnosis Encounter for laboratory testing for COVID-19 virus documented in this encounter
--- OUTSIDE RECORDS SUMMARY | 2024-11-28 12:32 | XMS_ITS | Encounter Summary ---
Author Organization [facility] Address [address] [place] [address] Care Team Providers Care Manager Of Creative Services Name Role Phone Unavailable Primary Care Provider Unavailabl e Encounter Details Date Type Department Care Team (Late st Contact Info) Description 03/29/2020 Lab Requisition EM LAB DOC PAO [address] [place] [phone] Gaudencio Matias PA-C [address] [place] [phone] Encounter for laboratory testing for COVID-19 virus [...] (REPORT) SARS COV-2 RNA (COVID-19), QUAL Routine 03/29/2020 3:33 PM EDT Encounter for laboratory testing for COVID-19 virus [ICD-10-CM] documented in this encounter Results * SARS CoV-2 RNA (COVID-19), Qual (03/29/2020 3:33 PM EDT) Pathologist [facility] SARS CoV 2 RNA, Qual NOT DETECTED NOT DETECTED 03/31/2020 6:00 PM EDT [facility] Comment: A Not Detected (negative) test result [...] providers and patients using the following websites: https://www.RuiYi.AURSOS/home/Covid-19/HCP/NAAT/fact-sheet2 https://www.RuiYi.AURSOS/home/Covid-19/Patients/NAAT/ fact-sheet2 This test has been authorized by the FDA under an Emergency Use Authorization (EUA) for use by authorized laboratories. Due to the current public health emergency, [facility] is receiving a high volume of samples [...] about COVID-19 can be found at the [employer] website: www.Squarespace.AURSOS/Covid19. Microbiology Nasopharyngeal swab / Unknown 03/29/2020 3:33 PM EDT 03/29/2020 3:33 PM EDT [facility] 03/31/2020 6:00 PM EDT Performing Organization Information: ?Site ID: [id number] ?Name: [employer] ?Address: [address] [place] [address],[place] [address] ?Director: KAUSHAL ANDREWS MD [facility]formed at [facility] License number [id number] Gaudencio Matias PA-C BODY FLUIDS AND STOOLS OR DERABLES Final Result Performing Organization Address City/State/[facility] Co de Phone Number [facility] documented in this encounter Visit Diagnoses Diagnosis Encounter for laboratory testing for COVID-19 virus documented in this encounter
--- OUTSIDE RECORDS SUMMARY | 2024-11-28 12:32 | XMS_ITS | Encounter Summary ---
Author Organization [facility] Address [address] [place] [address] Care Team Providers Care Lobster Man Name Role Phone Unavailable Primary Care Provider Unavailabl e Encounter Details Date Type Department Care Team (Late st Contact Info) Description 06/29/2020 Lab Requisition EM Lab DOC: Gregg Tineo [address] [place] [phone] Gaudencio Matias PA-C [address] [place] [phone] Encounter for laboratory testing for COVID-19 virus [...] (REPORT) SARS COV-2 RNA (COVID-19), QUAL Routine 06/29/2020 9:50 AM EST Encounter for laboratory testing for COVID-19 virus [ICD-10-CM] documented in this encounter Results * SARS CoV-2 RNA (COVID-19), Qual (06/29/2020 9:50 AM EST) Pathologist [facility] SARS CoV 2 RNA, Qual NOT DETECTED NOT DETECTED 07/02/2020 5:00 AM EST [facility] Comment: A Not Detected (negative) test [...] providers and patients using the following websites: https://www.GumGum.[facility] [employer]/home/Covid-19/HCP/QuestLDTP/ fact-sheet https://www.GumGum.[facility] [employer]/home/Covid-19/Patients/QuestLDTP/ fact-sheet.html This test has been authorized by the FDA under an Emergency Use Authorization (EUA) for use by authorized laboratories. Due to the current public health emergency, [facility] is receiving a high volume of samples [...] about COVID-19 can be found at the [facility] website: www.BioDetego.[facility]/Covid19. Microbiology Nasopharyngeal swab / Unknown 06/29/2020 9:50 AM EST 06/29/2020 9:50 AM EST Narrative [facility] - 07/02/2020 5:00 AM EST Performing Organization Information: ?Site ID: [id number] ?Name: [facility] ?Address: [address] [place] [address] [address] [address] ?Director: KAUSHAL ANDREWS MD [facility] at [facility] License number [id number] Gaudencio Matias PA-C BODY FLUIDS AND STOOLS OR DERABLES Final Result Performing Organization Address City/State/[facility] de Phone Number [facility] documented in this encounter Visit Diagnoses Diagnosis Encounter for laboratory testing for COVID-19 virus documented in this encounter
== END ==
LOC: HO.CARD 10:54
PROVIDERS: PCP Physician Assistant; Visit Provider Internal Medicine
DX: I49.3 Ventricular premature depolarization (principal)
CPT/HCPCS: 93350; Q9957

== ENCOUNTER → 2024-11-28 10:58 | Outpatient (BNV) | payer BC, SELFPAY | PROVIDERS: PCP Physician Assistant | DX: R06.02 Shortness of breath (principal); R94.31 Abnormal electrocardiogram [ECG] [EKG]; I49.3 Ventricular premature depolarization; I49.1 Atrial premature depolarization | CPT/HCPCS: 93016; 93018; 93350; 93352 ==

== ENCOUNTER → 2024-12-15 09:51 | Outpatient (REF) | payer BC, SELFPAY ==
--- OUTSIDE RECORDS SUMMARY | 2024-12-15 10:11 | XMS_ITS | Encounter Summary ---
Author Organization [facility] Address [address] [place] [address] Care Team Providers Care It Technical Architect Name Role Phone Unavailable Primary Care Provider Unavailabl e Encounter Details Date Type Department Care Team (Late st Contact Info) Description 06/14/2020 Lab Requisition EM LAB DOC PAO [address] [place] [phone] Gaudencio Matias PA-C [address] [place] [phone] Encounter for laboratory testing for COVID-19 virus [...] DETECTED NOT DETECTED 06/17/2020 9:00 PM EST [facility] Comment: A Not Detected (negative) test [...] providers and patients using the following websites: https://www.musiXmatch.[employer] Inc./home/Covid-19/HCP/QuestLDT/ fact-sheet.html https://www.musiXmatch.R[employer] Inc./home/Covid-19/Patients/QuestLDT/ fact-sheet.html ?? This test has been authorized by the FDA under an Emergency Use Authorization (EUA) for use by authorized laboratories. Due to the current public health emergency, [facility] is receiving a high volume of samples [...] about COVID-19 can be found at the [facility] website: www.[employer].R[employer]ly Inc./Covid19. Microbiology Nasopharyngeal swab / Unknown 06/14/2020 3:11 PM EST 06/14/2020 3:[address] [facility] - 06/17/2020 9:00 PM EST Performing Organization Information: ?Site ID: [id number] ?Name: [employer] ?Address: [address] [place] [address],[place] [address] ?Director: KAUSHAL ANDREWS MD [facility] at [facility] License number [id number] Gaudencio Matias PA-C BODY FLUIDS AND STOOLS OR DERABLES Final Result Performing Organization Address City/State/[facility] Co de Phone Number [facility] documented in this encounter Visit Diagnoses Diagnosis Encounter for laboratory testing for COVID-19 virus documented in this encounter
--- OUTSIDE RECORDS SUMMARY | 2024-12-15 10:11 | XMS_ITS | Encounter Summary ---
Author Organization [facility] Address [address] [place] [address] Care Team Providers Care Sponge Packer Name Role Phone Unavailable Primary Care Provider Unavailabl e Encounter Details Date Type Department Care Team (Late st Contact Info) Description 03/29/2020 Lab Requisition EM LAB DOC PAO [address] [place] [phone] Gaudencio Matias PA-C [address] [place] [address] [phone] Encounter for laboratory testing for COVID-19 virus [...] (COVID-19), Qual (03/29/2020 3:33 PM EDT) Pathologist [facility] SARS CoV 2 RNA, Qual NOT DETECTED NOT DETECTED 03/31/2020 6:00 PM EDT [facility] Comment: A Not Detected [...] providers and patients using the following websites: https://www.Zooplus.USConnect/home/Covid-19/HCP/NAAT/fact-sheet2 https://www.Zooplus.USConnect/home/Covid-19/Patients/NAAT/ fact-sheet2 This test has been authorized by the FDA under an Emergency Use Authorization (EUA) for use by authorized laboratories. Due to the current public health emergency, [facility] is receiving a high volume of samples [...] about COVID-19 can be found at the [facility] website: www.Diamond Mind.USConnect/Covid19. Microbiology Nasopharyngeal swab / Unknown 03/29/2020 3:33 PM EDT 03/29/2020 3:33 PM EDT [facility] 03/31/2020 6:00 PM EDT Performing Organization Information: ?Site ID: [id number] ?Name: [employer] ?Address: [address] [place] [address],[place] [address] ?Director: KAUSHAL ANDREWS MD Performed at [facility] License number [id number] Gaudencio Matias PA-C BODY FLUIDS AND STOOLS OR DERABLES Final Result Performing Organization Address City/State/[facility] Co de Phone Number [facility] documented in this encounter Visit Diagnoses Diagnosis Encounter for laboratory testing for COVID-19 virus documented in this encounter
--- OUTSIDE RECORDS SUMMARY | 2024-12-15 10:11 | XMS_ITS | Clinical Summary ---
Author Organization [facility] Address [address] [place] [address] Care Team Providers Care Barrow Worker Name Role Phone Unavailable Primary Care Provider [...]
--- OUTSIDE RECORDS SUMMARY | 2024-12-15 10:11 | XMS_ITS | Encounter Summary ---
Author Organization [facility] Address [address] [place] [address] Care Team Providers Care Automotive Title Clerk Name Role Phone Unavailable Primary Care Provider Unavailabl e Encounter Details Date Type Department Care Team (Late st Contact Info) Description 06/29/2020 Lab Requisition EM Lab DOC: Gregg Tineo [address] [place] [phone] Gaudenico Matias PA-C [address] [place] [phone] Encounter for laboratory testing for COVID-19 virus [...] (COVID-19), Qual (06/29/2020 9:50 AM EST) Pathologist [facility] SARS CoV 2 RNA, Qual NOT DETECTED NOT DETECTED 07/02/2020 5:00 AM EST [facility] Comment: A Not Detected (negative) test result [...] providers and patients using the following websites: https://www.ClearFit.QPD/home/Covid-19/HCP/QuestLDTP/ fact-sheet https://www.ClearFit.QPD/home/Covid-19/Patients/QuestLDTP/ fact-sheet.html This test has been authorized by the FDA under an Emergency Use Authorization (EUA) for use by authorized laboratories. Due to the current public health emergency, [facility] is receiving a high volume of samples [...] about COVID-19 can be found at the [facility] website: www.Apple Seeds.QPD/Covid19. Microbiology Nasopharyngeal swab / Unknown 06/29/2020 9:50 AM EST 06/29/2020 9:50 AM EST Narrative [facility] - 07/02/2020 5:00 AM EST Performing Organization Information: ?Site ID: [id number] ?Name: [employer] ?Address: [address] [place] [address] [address]LO[address] [address] ?Director: KAUSHAL ANDREWS MD [facility] at [facility] License number [id number] Gaudencio Matias PA-C BODY FLUIDS AND STOOLS OR DERABLES Final Result Performing Organization Address City/State/[facility] de Phone Number [facility] documented in this encounter Visit Diagnoses Diagnosis Encounter for laboratory testing for COVID-19 virus documented in this encounter
--- OUTSIDE RECORDS SUMMARY | 2024-12-15 10:11 | XMS_ITS | Encounter Summary ---
Author Organization [facility] Address [address] [place] [address] Care Team Providers Care Lining Feller Blindstitch Name Role Phone Unavailable Primary Care Provider Unavailabl e Encounter Details Date Type Department Care Team (Late st Contact Info) Description 04/27/2020 Lab Requisition EM LAB DOC PAO [address] [place] [phone] Gaudencio Matias PA-C [address] [place] [phone] Encounter for laboratory testing for COVID-19 virus [...] (COVID-19), Qual (04/27/2020 9:08 AM EDT) Pathologist [facility] SARS CoV 2 RNA, Qual NOT DETECTED NOT DETECTED 04/28/2020 9:00 PM EDT [facility] Comment: A Not Detected (negative) test [...] providers and patients using the following websites: https://www.Photop Technologies.Uni-Pixel/home/Covid-19/HCP/QuestLDTP/ fact-sheet https://www.EATON/home/Covid-19/Patients/QuestLDTP/ fact-sheet.html This test has been authorized by the FDA under an Emergency Use Authorization (EUA) for use by authorized laboratories. Due to the current public health emergency, [facility] is receiving a high volume of samples [...] about COVID-19 can be found at the [facility] website: www.Tinselvision.Uni-Pixel/Covid19. Microbiology Nasopharyngeal swab / Unknown 04/27/2020 9:08 AM EDT 04/27/2020 9:08 AM EDT Narrative [facility] - 04/28/2020 9:00 PM EDT Performing Organization Information: ?Site ID: [id number] ?Name: [employer] ?Address: [address] [place] [address] [address],[place] [address] ?Director: KAUSHAL ANDREWS MD [facility] License number [id number] Gaudencio Matias PA-C BODY FLUIDS AND STOOLS OR DERABLES Final Result Performing Organization Address City/State/[facility] de Phone Number [facility] documented in this encounter Visit Diagnoses Diagnosis Encounter for laboratory testing for COVID-19 virus documented in this encounter
== END ==
LOC: HO.SL 09:51
PROVIDERS: PCP Physician Assistant; Visit Provider Internal Medicine
DX: G47.33 Obstructive sleep apnea (adult) (pediatric) (principal); I49.3 Ventricular premature depolarization
CPT/HCPCS: 95806

== ENCOUNTER → 2024-12-15 10:02 | Outpatient (BNV) | payer BC, SELFPAY | PROVIDERS: PCP Physician Assistant; Visit Provider Internal Medicine | DX: G47.33 Obstructive sleep apnea (adult) (pediatric) (principal) | CPT/HCPCS: 95806 ==

== ENCOUNTER 2024-12-26 12:30 | Outpatient (AMB) | payer BC, SELFPAY ==
[2024-12-26 12:55] VITALS: BP 130/68; PULSE 78; BMI 31.2
--- NOTE | 2024-12-26 12:55 | MHC.OFFVIS ---
Vital Signs 12/26/24 12:55 Height 6 ft Weight 230 lb BMI 31.2 BP 130/68 Blood Pressure Location Lt brachial Position Sitting Pulse 78 Pulse Source Pulse Oximeter Intake Visit Reasons: 6-8 wk follow up/sleep study/stress echo Allergies No Known Allergies [No Known Allergies*] Allergy (Verified 06/08/24 13:42) Medication List - Last Reconciled 12/26/24 by James Jefferson MD cetirizine (Zyrtec) 10 mg PO DAILY PRN losartan-hydrochlorothiazide 50-12.5 mg 1 tab PO DAILY 90 days omeprazole 20 mg PO DAILY HPI Comments Details: Satya returns for follow-up. Recently seen in consultation regarding palpitations. He underwent workup through his own PCP and that showed PVCs. No history of any coronary disease myocardial infarction or cardiomyopathy. Hypertension medications. No clear-cut anginal-type complaints. History of drinking alcohol regularly. Since last seen, he has completed a stress test and sleep study as well. Also, he states that he has spontaneously much better and does not feel palpitations these days. He has cut back on alcohol. [facility] Medical History (Updated 12/26/24 @ 13:08 by James Jefferson MD) Palpitations Surgical History (Updated 10/17/24 @ 10:37 by Le Xiong CMA) H/O shoulder surgery Hx of esophagogastroduodenoscopy Hx of colonoscopy History of nasal surgery History of tooth extraction Family History Father FH: brain cancer Mother FH: HTN (hypertension) Afib Social History Housing: House Alcohol intake: current Alcohol intake frequency: 0-2 drinks per day Alcohol type: beer and hard liquor Patient Tobacco Use Status: Former Tobacco user Tobacco use type: Cigarette e-Cigarette/Vaping Use: Never Used service: No Current occupational status: employed Current occupation: [email or web address] [place] ( [place]) Cognitive needs: No Hearing needs: No Vision needs: No Review of Systems Const Denies weakness ENT Denies dizziness Card Denies chest pain, Denies chest pain with activity, Denies syncope, Denies rapid heart rate, Denies pedal edema, Denies edema, Denies leg edema, Denies lightheadedness, Denies palpitations, Denies dyspnea, Denies dyspnea on exertion and Denies orthopnea Resp Denies cough, Denies dyspnea and Denies dyspnea on exertion GI Denies hematochezia and Denies change in stool character Musc Denies abnormal gait, Denies muscle cramps, Denies muscle weakness, Denies numbness, Denies radiating pain into limb and Denies tingling Neuro Denies abnormal gait, Denies dizziness, Denies syncope, Denies numbness, Denies tingling and Denies weakness Endo Denies palpitations Physical Exam Vital Signs: Last Vital Signs Pulse 78 12/26/24 12:55 BP 130/68 12/26/24 12:55 BMI result Body Mass Index 31.2 Const General: comfortable and no acute distress Orientation/consciousness: patient oriented x3 HEENT Other: Unremarkable Head: Yes normal to inspection Neck Neck: Yes normal visual inspection Chest Chest palpation & inspection: normal inspection of the chest Resp Auscultation: clear to auscultation bilaterally Cardio Palpation: normal PMI Heart sounds: S1 normal heart sound present, S2 normal heart sound present, no gallops, no murmurs and no rubs GI Palpation (GI): Soft to palpation Back/Spine/Pelvis Other: unremarkable Skin General skin exam: no rashes or lesions noted Neuro General: patient oriented x3 Extrem General: Yes normal to inspection Psych Mental Status: mental status grossly normal Assessment & Plan Assessment & Plan (1) PVC (premature ventricular contraction): Code(s): I49.3 - Ventricular premature depolarization Category: Medical (2) HTN (hypertension): Code(s): I10 - Essential (primary) hypertension Category: Medical Qualifiers: Hypertension type: primary hypertension Qualified Code(s): I10 - Essential (primary) hypertension (3) Obese: Code(s): E66.9 - Obesity, unspecified Category: Medical Qualifiers: Body mass index: BMI 30.0-30.9 Obesity classification: adult class 1 (BMI 30 - 34.9) Obesity type: due to excess calories Serious obesity comorbidity presence: without serious comorbidity Qualified Code(s): E66.09 - Other obesity due to excess calories; Z68.30 - Body mass index [BMI] 30.0-30.9, adult (4) Excessive drinking alcohol: Code(s): F10.10 - Alcohol abuse, uncomplicated Category: Social Hx (5) Obstructive sleep apnea: Code(s): G47.33 - Obstructive sleep apnea (adult) (pediatric) Category: Medical (6) Nocturnal hypoxemia: Code(s): G47.34 - Idiopathic sleep related nonobstructive alveolar hypoventilation Category: Medical Plan Pertinent studies reviewed. EKG from April 2024 with underlying sinus rhythm at 67/Min; PVCs; normal IA and corrected QT. no ischemic changes. In the EKGs prior to that from 2021, 2017 there are no PVCs. Holter monitor shows underlying sinus rhythm with an average rate of 80/Min. Frequent PVCs with a burden of 16%. Stomach cramps in patient diary correlating with PVCs. Echocardiogram with LVEF of 55-60%. Normal diastolic filling. Possible left atrial dilatation. No significant valvular findings. Exercise stress echocardiogram was negative at 10 METS exercise capacity. Available high sensitivity troponins from 2021, 2023 are within normal limits. Home sleep study with [id number] obstructive sleep apnea. Excessive snoring, 61% of the time. Nocturnal hypoxemia. Suggested sleep related hypoventilation syndrome. Overall, palpitations, frequent PVCs on Holter, obesity, alcohol excess, obstructive sleep apnea, nocturnal hypoxemia, sleep-related hypoventilation. Findings discussed with patient. Main recommendation would be to lose weight, cut back on alcohol and make appointment with Pulmonary to discuss options like CPAP. He agrees with the above. We can recheck Holter in 6 months or so. If there is continued high burden in spite of all the above changes, then consider cardiac MRI. With regard to hypertension, stable on current meds. We will see him in 6 months' time. In the interim, if any concerns, advised him to contact us or seek emergency help as appropriate. Coding Level of Care Code Est Pt Level 4 (33015) Complex EM visit Add On G2211 Diagnoses PVC (premature ventricular contraction) I49.3 Primary hypertension I10 Hypertension type: primary hypertension Class 1 obesity due to excess calories without serious comorbidity with body mass index (BMI) of 30.0 to 30.9 in adult E66.09; Z68.30 Body mass index: BMI 30.0-30.9 Obesity classification: adult class 1 (BMI 30 - 34.9) Obesity type: due to excess calories Serious obesity comorbidity presence: without serious comorbidity Excessive drinking alcohol F10.10 Obstructive sleep apnea G47.33 Nocturnal hypoxemia G47.34
== END 2024-12-26 13:07 | disposition home or self-care (01) ==
LOC: HO.HCS 12:51
PROVIDERS: PCP Physician Assistant; Visit Provider Internal Medicine
DX: I49.3 Ventricular premature depolarization (principal); I10 Essential (primary) hypertension; E66.09 Other obesity due to excess calories; Z68.30 Body mass index [BMI] 30.0-30.9, adult; F10.10 Alcohol abuse, uncomplicated; G47.33 Obstructive sleep apnea (adult) (pediatric); G47.34 Idiopathic sleep related nonobstructive alveolar hypoventilation
CPT/HCPCS: 99214

== ENCOUNTER → 2024-12-26 12:30 | Outpatient (BNVA) | payer BC, SELFPAY | PROVIDERS: PCP Physician Assistant; Visit Provider Internal Medicine ==

== ENCOUNTER 2025-01-10 15:23 | Outpatient (AMB) | payer BC, SELFPAY ==
[2025-01-10 15:31] VITALS: BP 110/52; PULSE 60; O2SAT 95; BMI 31.5
--- NOTE | 2025-01-10 15:31 | MHC.OFFVIS ---
Vital Signs 01/10/25 15:31 Height 6 ft Weight 232 lb 9.403 oz BMI 31.5 BP 110/52 L Blood Pressure Location Lt brachial Position Sitting Pulse 60 Pulse Source Pulse Oximeter Pulse Oximetry (%) 95 Oxygen Delivery Method Room Air Intake Visit Reasons: Obstructive sleep apnea Intake Note: pt is here as a new patient for a sleep study follow up Municipal Services Manager Required: No Allergies No Known Allergies [No Known Allergies*] Allergy (Verified 01/10/25 16:15) Medication List - Last Reconciled 01/10/25 by Baljeet Sierra MD cetirizine (Zyrtec) 10 mg PO DAILY PRN losartan-hydrochlorothiazide 50-12.5 mg 1 tab PO DAILY 90 days omeprazole 20 mg PO DAILY Do you need a note to return to daycare/school/sports/work: No HPI HPI Obstructive sleep apnea: Details: This 54 years old gentleman is here for the 1st time to discuss about the further management of his recently diagnosed obstructive sleep apnea. Patient has been seen by his salon sales consultant Dr. Jefferson, for his ongoing hypertension. Dr. Jefferson had ordered a home-based sleep study , which is grossly abnormal. He has been referred to me for further management. This gentleman is moderately obese , his obesity being more truncal, he does have history of excessive snoring at night, Also wakes up a few times during the night, and does report excessive daytime sleepiness, especially when he drives back to his house in the evening. These symptoms have been going on for about 6-12 months. He is nonsmoker. But he does drink in moderate amounts and is now trying to cut it down. He has no history of any chronic lung disease. He does have symptoms of allergic rhinitis and uses Zyrtec 10 mg p.r.n. [facility] Medical History Palpitations Surgical History H/O shoulder surgery Hx of esophagogastroduodenoscopy Hx of colonoscopy History of nasal surgery History of tooth extraction Family History Father FH: brain cancer Mother FH: HTN (hypertension) Afib Social History Housing: House Alcohol intake: current Alcohol intake frequency: 0-2 drinks per day Alcohol type: beer and hard liquor Patient Tobacco Use Status: Former Tobacco user Tobacco use type: Cigarette e-Cigarette/Vaping Use: Never Used service: No Current occupational status: employed Current occupation: [employer] ( [place]) Cognitive needs: No Hearing needs: No Vision needs: No Review of Systems Const All systems reviewed & are unremarkable except as noted in HPI and below Eyes Reports no additional complaints ENT Reports nasal congestion (Mild intermittent) Card Denies chest pain and Reports dyspnea on exertion (Mild) Resp Reports as per HPI and Reports dyspnea on exertion (Mild) GI Reports dyspepsia and Reports heartburn Reports no additional complaints Musc Reports no additional complaints Skin/Breast Reports system reviewed and no additional complaints, except as documented Neuro Reports no additional complaints Psych Reports no additional complaints Endo Reports no additional complaints Navin/Lymph Reports no additional complaints Aller/Immun Reports no additional complaints Physical Exam Vital Signs: Last Vital Signs Pulse 60 01/10/25 15:31 BP 110/52 L 01/10/25 15:31 Pulse Ox 95 01/10/25 15:31 Oxygen Delivery Method Room Air 01/10/25 15:31 BMI result Body Mass Index 31.5 Const General: healthy appearing (Except for overweight), comfortable, no acute distress, alert and awake Orientation/consciousness: patient oriented x3 HEENT Head: Yes normal to inspection General nose exam: No nasal polyps present and No nasal discharge present Face and sinus: Yes sinuses nontender Mouth: oropharynx normal Throat: Yes posterior oropharynx normal Eyes General: appearance normal, both eyes and all related structures Neck Neck: Yes normal visual inspection, Yes no lymphadenopathy, Yes trachea midline and Yes no JVD Thyroid: Thyroid normal Chest Chest palpation & inspection: normal inspection of the chest, normal palpation of entire chest wall and no tenderness Resp Effort & Inspection: normal respiratory effort Auscultation: clear to auscultation bilaterally, no crackles, no rhonchi and no wheezes Cardio Palpation: normal PMI Rate: regular rate Rhythm: regular rhythm Heart sounds: no gallops and no murmurs Peripheral pulses: Peripheral pulses 2+ throughout GI Palpation (GI): Soft to palpation, nontender, No hepatosplenomegaly present and no masses Auscultation: normal bowel sounds Back/Spine/Pelvis Thoracic/Lumbar Spine: thoracic and lumbar spine normal to inspection Skin General skin exam: no rashes or lesions noted Neuro General: patient oriented x3 and no focal motor deficits Cranial nerves: Yes CN's II-XII intact bilaterally Extrem General: Yes normal to inspection, Yes no clubbing, cyanosis or edema, Yes no calf tenderness and Yes other (Varicose veins both legs) Psych Appearance: grossly normal and well kempt Speech and movement: Normal speech and movement present Results Reviewed Results Reviewed: Home-based sleep study on 12/15 Total sleep time AHI 9.2, supine position AHI 21.4 snoring for 61% of the sleep time. Average O2 sat 88% and O2 sat below 88% for 140 minutes Assessment & Plan Assessment & Plan (1) Obstructive sleep apnea: Comment: The symptoms, and findings of home-based sleep study are indicated of mild to moderate degree of obstructive. Sleep apnea as described above in the results Code(s): G47.33 - Obstructive sleep apnea (adult) (pediatric) Category: Medical Plan: Reviewed the results of sleep study with him. I told him that ordinarily we may have recommended conservative measures for treatment but in his case, the best option is to treat him actively with CPAP.. He understands well. Because he does have persistent hypoxemia during the whole night, I recommend that he should have sleep lab based titration to determine the optimal pressure and to ensure that hypoxemia gets corrected. (2) Nocturnal hypoxemia: Comment: The nocturnal hypoxemia is part of his un treated GAYATRI . It may get corrected by use of CPAP or he may need O2 supplementation along with the CPAP. Code(s): G47.34 - Idiopathic sleep related nonobstructive alveolar hypoventilation Category: Medical Plan: Explained to the patient and that is why that he needs CPAP titration in the sleep lab. He understands well and is agreeable to the CPAP study in the sleep lab. We are going to expedite the CPAP titration in sleep lab and see him right after this study, so that he can be put on the CPAP as soon as possible. Coding Level of Care Code New Pt Level 4 (73018) Diagnoses Obstructive sleep apnea G47.33 Nocturnal hypoxemia G47.34
== END 2025-01-10 16:15 | disposition home or self-care (01) ==
LOC: HO.HPS 15:24
PROVIDERS: PCP Physician Assistant; Referring Provider Internal Medicine; Visit Provider Internal Medicine
DX: G47.33 Obstructive sleep apnea (adult) (pediatric) (principal); G47.34 Idiopathic sleep related nonobstructive alveolar hypoventilation
CPT/HCPCS: 99204

== ENCOUNTER → 2025-02-05 20:30 | Outpatient (REF) | payer BC, SELFPAY ==
--- OUTSIDE RECORDS SUMMARY | 2025-02-05 20:55 | XMS_ITS | Encounter Summary ---
Author Organization [facility] Address [address] [place] [address] Care Team Providers Care Corrections Corporal Name Role Phone Unavailable Primary Care Provider Unavailabl e Encounter Details Date Type Department Care Team (Late st Contact Info) Description 03/29/2020 Lab Requisition EM LAB DOC PAO [address] [place] [phone] Gaudencio Matias PA-C [address] [place] [phone] Encounter for laboratory testing for COVID-19 virus [...] (COVID-19), Qual (03/29/2020 3:33 PM EDT) Pathologist [facility] SARS CoV 2 RNA, Qual NOT DETECTED NOT DETECTED 03/31/2020 6:00 PM EDT [facility] Comment: A Not Detected (negative) test result [...] providers and patients using the following websites: https://www.Fundera.Vinveli/home/Covid-19/HCP/NAAT/fact-sheet2 https://www.Fundera.Vinveli/home/Covid-19/Patients/NAAT/ fact-sheet2 This test has been authorized by the FDA under an Emergency Use Authorization (EUA) for use by authorized laboratories. Due to the current public health emergency, [employer] is receiving a high volume of samples [...] including collection of an additional specimen. Methodology: Nucleic Acid Amplification Test (NAAT) includes PCR or TMA Additional information about COVID-19 can be found at the [employer] website: www.Sportmeets.Vinveli/Covid19. Microbiology Nasopharyngeal swab / Unknown 03/29/2020 3:33 PM EDT 03/29/2020 3:33 PM EDT Narrative [facility] - 03/31/2020 6:00 PM EDT Performing Organization Information: Site ID: [id number] Name: [employer] Address: [address] [place] [address],[place] [address] Director: KAUSHAL ANDREWS MD [facility] License number [id number] Gaudencio Matias PA-C BODY FLUIDS AND STOOLS OR DERABLES Final Result [facility] documented in this encounter Visit Diagnoses Diagnosis Encounter for laboratory testing for COVID-19 virus documented in this encounter
== END ==
LOC: HO.SL 20:30
PROVIDERS: PCP Physician Assistant; Visit Provider Internal Medicine
DX: G47.33 Obstructive sleep apnea (adult) (pediatric) (principal); G47.34 Idiopathic sleep related nonobstructive alveolar hypoventilation
CPT/HCPCS: 95811

== ENCOUNTER 2025-02-07 14:16 | Outpatient (AMB) | payer BC, SELFPAY ==
--- NOTE | 2025-02-07 14:20 | MHC.OFFVIS ---
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 which was performed on 02/05/25 According do the food science technician, he did well, with these titration. and optimal results were obtained with pressure of 15 cm. at this pressure his the oxygenation was maintained in the normal range, and he did not require any O2 supplementation. The patient states that he had difficulty in sleeping and felt very uncomfortable. He say is he sleeps much better without the CPAP PFSH Medical History Palpitations Surgical History H/O shoulder surgery Hx of esophagogastroduodenoscopy Hx of colonoscopy History of nasal surgery History of tooth extraction Family History Father FH: brain cancer Mother FH: HTN (hypertension) Afib Social History Housing: House Alcohol intake: current Alcohol intake frequency: 0-2 drinks per day Alcohol type: beer and hard liquor Patient Tobacco Use Status: Former Tobacco user Tobacco use type: Cigarette e-Cigarette/Vaping Use: Never Used service: No Current occupational status: employed Current occupation: [employer] ( [employer]) Cognitive needs: No Hearing needs: No Vision needs: No Review of Systems Const All systems reviewed & are unremarkable except as noted in HPI and below Eyes Reports no additional complaints ENT Reports nasal congestion (Mild intermittent) Card Denies chest pain and Reports dyspnea on exertion (Mild) Resp Reports as per HPI and Reports dyspnea on exertion (Mild) GI Reports dyspepsia and Reports heartburn Reports no additional complaints Musc Reports no additional complaints Skin/Breast Reports system reviewed and no additional complaints, except as documented Neuro Reports no additional complaints Psych Reports no additional complaints Endo Reports no additional complaints Navin/Lymph Reports no additional complaints Aller/Immun Reports no additional complaints Physical Exam Vital Signs: Last Vital Signs Pulse 83 02/07/25 14:21 BP 128/68 02/07/25 14:21 Pulse Ox 95 02/07/25 14:21 Oxygen Delivery Method Room Air 02/07/25 14:21 BMI result Body Mass Index 31.8 Const General: healthy appearing (Except for overweight), comfortable, no acute distress, alert and awake Orientation/consciousness: patient oriented x3 HEENT Head: Yes normal to inspection General nose exam: No nasal polyps present and No nasal discharge present Face and sinus: Yes sinuses nontender Mouth: oropharynx normal Throat: Yes posterior oropharynx normal Eyes General: appearance normal, both eyes and all related structures Neck Neck: Yes normal visual inspection, Yes no lymphadenopathy, Yes trachea midline and Yes no JVD Thyroid: Thyroid normal Chest Chest palpation & inspection: normal inspection of the chest, normal palpation of entire chest wall and no tenderness Resp Effort & Inspection: normal respiratory effort Auscultation: clear to auscultation bilaterally, no crackles, no rhonchi and no wheezes Cardio Palpation: normal PMI Rate: regular rate Rhythm: regular rhythm Heart sounds: no gallops and no murmurs Peripheral pulses: Peripheral pulses 2+ throughout GI Palpation (GI): Soft to palpation, nontender, No hepatosplenomegaly present and no masses Auscultation: normal bowel sounds Back/Spine/Pelvis Thoracic/Lumbar Spine: thoracic and lumbar spine normal to inspection Skin General skin exam: no rashes or lesions noted Neuro General: patient oriented x3 and no focal motor deficits Cranial nerves: Yes CN's II-XII intact bilaterally Extrem General: Yes normal to inspection, Yes no clubbing, cyanosis or edema, Yes no calf tenderness and Yes other (Varicose veins both legs) Psych Appearance: grossly normal and well kempt Speech and movement: Normal speech and movement present Results Reviewed Results Reviewed: CPAP titration study reviewed with him. His sleep efficiency was suboptimal, but he did well with CPAP of 15 cm using fullface mask. Assessment & Plan Assessment & Plan (1) Obstructive sleep apnea: Comment: The symptoms, and findings of home-based sleep study were positive for GAYATRI but mild. He also had Nocturnal Hypoxemia . Had CPAP titration in the sleep lab just 2 days ago. Pressure was gradually increased to 15 cm to achieve optimal results. There were only a few obstructive events, left and the oxygenation was in normal range. so he did not need any O2 supplementation. Code(s): G47.33 - Obstructive sleep apnea (adult) (pediatric) Category: Medical Plan: Explained to the patient the fi.ndings of CPAP titration He complains of poor sleep in the sleep lab, and shows some hesitation in using the CPAP indicating that it disturbed his sleep. he was educated that it is important for him to use the CPAP. he may have to act limit, ties for a wh ile I have advised him to use the CPAP during the daytime for 1 or 2 hours even when he is awake, just to get used to the , CPAP mask ORDERED CPAP OF 15 CM USING FULLFACE MASK . AND START WITH A FEW HOURS AT NIGHT THEN INCREASE THE TIME OF USAGE TO AT LEAST 6 HOURS PER NIGHT. (2) Nocturnal hypoxemia: Comment: The nocturnal hypoxemia is part of his un treated GAYATRI . it was corrected with the use of CPAP. Code(s): G47.34 - Idiopathic sleep related nonobstructive alveolar hypoventilation Category: Medical Plan: would not need O2 supplementation along with CPAP (3) Excessive drinking alcohol: Comment: PATIENT DOES HAVE HISTORY OF ALCOHOL ABUSE. I EDUCATED HIM THAT THIS IS NOT GOOD FOR SLEEP APNEA. 8 WILL RESULT IN FRA.GMENTED SLEEP Code(s): F10.10 - Alcohol abuse, uncomplicated Category: Social Hx Plan: COUNSELED THAT HE SHOULD TRY TO MINIMIZE THE ALCOHOL INTAKE, WITH A GOAL TO QUIT C.OMPLETELY Coding Level of Care Code Est Pt Level 3 (07162) Diagnoses Obstructive sleep apnea G47.33 Nocturnal hypoxemia G47.34 Excessive drinking alcohol F10.10
[2025-02-07 14:21] VITALS: BP 128/68; PULSE 83; O2SAT 95; BMI 31.8
--- OUTSIDE RECORDS SUMMARY | 2025-02-07 15:31 | XMS_ITS | Encounter Summary ---
Author Organization [facility] Address [address] [place] [address] Care Team Providers Care Adjunct Communications Faculty Member Name Role Phone Unavailable Primary Care Provider Unavailabl e Encounter Details Date Type Department Care Team (Late st Contact Info) Description 03/29/2020 Lab Requisition EM [facility] [address] [place] [phone] Gaudencio Matias PA-C [address] [place] [phone] Encounter for laboratory testing for COVID-19 virus [...] (COVID-19), Qual (03/29/2020 3:33 PM EDT) Pathologist [facility] SARS CoV 2 RNA, Qual NOT DETECTED NOT DETECTED 03/31/2020 6:00 PM EDT [facility] Comment: A Not Detected (negative) test [...] providers and patients using the following websites: [email or web address]/fact-[email or web address]/ fact-sheet2 This test has been authorized by the FDA under an Emergency Use Authorization (EUA) for use by authorized laboratories. Due to the current public health emergency, [facility] is receiving a high volume of samples [...] about COVID-19 can be found at the [facility] website: [email or web address]. Microbiology Nasopharyngeal swab / Unknown 03/29/2020 3:33 PM EDT 03/29/2020 3:33 PM EDT Narrative [facility] - 03/31/2020 6:00 PM EDT Performing Organization Information: Site ID: [id number] Name: [employer] Address: [address] [place] [address],[place] [address] Director: KAUSHAL ANDREWS MD [facility]formed at [facility] License number [id number] Gaudencio Matias PA-C BODY FLUIDS AND STOOLS OR DERABLES Final Result [facility] documented in this encounter Visit Diagnoses Diagnosis Encounter for laboratory testing for COVID-19 virus documented in this encounter
--- OUTSIDE RECORDS SUMMARY | 2025-02-07 15:31 | XMS_ITS ---
Author Name [facility] Organization Unknown Care Team Organization Name Specialty Phone Email Start Date End [facility] te [facility] the State [facility] ([facility]) 06/10/2024 01/25/2025
== END 2025-02-07 14:59 | disposition home or self-care (01) ==
LOC: HO.HPS 14:17
PROVIDERS: PCP Physician Assistant; Visit Provider Internal Medicine
DX: G47.33 Obstructive sleep apnea (adult) (pediatric) (principal); G47.34 Idiopathic sleep related nonobstructive alveolar hypoventilation; F10.10 Alcohol abuse, uncomplicated
CPT/HCPCS: 99213

== ENCOUNTER 2025-06-09 07:04 | Outpatient (REF) | payer BC, SELFPAY ==
[2025-06-09 07:43] LABS: Hematocrit 40.4 % (42.0-52.0); Hemoglobin 13.5 g/dl (14.0-18.0); Mean Corpuscular HGB Conc 33.4 g/dl (31.0-36.0); Mean Corpuscular Hemoglobin 29.5 pg (27.0-33.0); Mean Corpuscular Volume 88.2 fL (80.0-98.0); NRBC Abs Auto 0.000 X10*3/uL (0.0-0.012); NRBC Pct Auto 0.0 /100WBC (0.0-0.2); Platelet Count 219 X10*3/uL (160-400); Red Blood Count 4.58 X10*6/uL (4.60-5.80); White Blood Count 8.2 X10*3/uL (4.8-10.8)
[2025-06-09 08:29] LABS: Alanine Aminotransferase 58 U/L (0-40); Albumin Level 4.5 g/dL (3.5-5.0); Alkaline Phosphatase 62 U/L (39-117); Anion Gap 12 (12-20); Aspartate Amino Transferase 34 U/L (5-37); Blood Urea Nitrogen 12 mg/dL (9-16); Calcium 9.5 mg/dL (8.4-10.2); Carbon Dioxide 28 mmol/L (22-29); Chloride 104 mmol/L (96-108); Cholesterol 212 mg/dL (<200); Estimated Glomerular Filt Rate > 60; HDL Cholesterol 36 mg/dL (>40); Potassium 4.1 mmol/L (3.3-5.1); Sodium 140 mmol/L (135-145); Total Protein 7.0 g/dL (6.5-8.0); Triglycerides 207 mg/dL (<150)
== END 2025-06-09 07:05 | disposition home or self-care (01) ==
LOC: HO.LAB 07:04
PROVIDERS: PCP Physician Assistant; Visit Provider Physician Assistant
DX: Z12.5 Encounter for screening for malignant neoplasm of prostate (principal); I10 Essential (primary) hypertension; E78.9 Disorder of lipoprotein metabolism, unspecified
CPT/HCPCS: 36415; 80053; 80061; 82043; 82570; 84153; 85027

== ENCOUNTER 2025-06-12 13:34 | Outpatient (AMB) | payer BC, SELFPAY ==
--- NOTE | 2025-06-12 13:48 | MHC.PC.OV ---
Vital Signs 06/12/25 13:50 Height 6 ft Weight 232 lb 2 oz BMI 31.5 BP 148/72 H Blood Pressure Location Lt brachial Position Sitting Pulse 56 Pulse Source Pulse Oximeter Temp 97.3 F Temp Source Temporal Artery Scan Pulse Oximetry (%) 97 Oxygen Delivery Method Room Air Intake Visit Reasons: pe Intake Note: Patient is here today for a physical. Geodetic Surveyor Required: No Ceiling Insulation Blower: Not Required per policy Accompanied by: Self / Same As Patient Allergies No Known Allergies (No Known Allergies*) Allergy (Verified 06/12/25 14:07) Medication List - Last Reconciled 06/12/25 by Broderick Gaytan PA-C cetirizine (Zyrtec) 10 mg PO DAILY PRN losartan-hydrochlorothiazide 50-12.5 mg 1 tab PO DAILY 90 days omeprazole 20 mg PO DAILY Tobacco use date assessed: 06/12/25 Dental Screening Dental Screen Date: 06/12/25 Did you have a dental visit in the last 12 months?: Yes Did you have a dental problem in the last 6 months where you did not have access to dental care?: No Was dental information given to patient?: Patient has dentist HPI pe HPI Details Patient is a 54 year-old male here today for routine annual physical. Patient has a past medical history significant for hypertension, obesity, obstructive sleep apnea, GERD and borderline high cholesterol Hypertension : Blood pressure slightly elevated today in office. He has been monitoring his blood pressure at home and notes normal blood pressures. He has transitioning to losartan hydrochlorothiazide and blood pressures seem to have been better. He otherwise denies any headaches, shortness of breath or dizziness. His previous episodes of heart palpitations have subsided since he has reduced his alcohol and has retired from his stressful job. .. GAYATRI: He has a diagnosis of severe obstructive sleep apnea and a history of a non-specified fibrillation (not atrial fibrillation). His cardiac symptoms improved with decreased alcohol intake, and a prior stress echocardiogram was normal. He found the sleep study experience to be intolerable. PLAN: He will look into Zepbound as a alternative treatment to his obstructive sleep apnea .. GERD: The patient's gastroesophageal reflux has improved. He now takes omeprazole approximately four times a week in the morning, which is a reduction from previous nightly use. He also reports upper abdominal bloating, recent constipation, and sticky stools, and is awaiting a colonoscopy for further evaluation. His last colonoscopy was approximately three years ago Colonic polyp: Recently had gotten colonoscopy--> tubulovillous adenoma, needs repeat colonoscopy in 3 years -2024 Vaccine: Up-to-date with COVID vaccine flu vaccine, tetanus and pneumonia vaccines. Needs TDap and FLu Laboratory Tests 05/23/24 06/08/24 06/09/25 09:10 13:42 07:19 Hgb 13.6 L 13.5 L Creatinine 0.92 Fasting Glucose 114 H Hgb A1c (Clinic) 6.0 Cholesterol 212 H LDL Cholesterol, C alc 135 H PSA Screen 0.31 Urine Microalbumin 06/09/25 07:20 Hgb Creatinine Fasting Glucose Hgb A1c (Clinic) Cholesterol LDL Cholesterol, C alc PSA Screen Urine Microalbumin < 5.0 PFSH Medical History Palpitations Surgical History H/O shoulder surgery Hx of esophagogastroduodenoscopy Hx of colonoscopy History of nasal surgery History of tooth extraction Family History Father FH: brain cancer Mother FH: HTN (hypertension) Afib Social History Housing: House Alcohol intake: current Alcohol intake frequency: a few times a week Alcohol type: beer and hard liquor Patient Tobacco Use Status: Former Tobacco user Tobacco use type: Cigarette e-Cigarette/Vaping Use: Never Used Second Hand Smoke Exposure: Yes service: No Current occupational status: employed Current occupation: [employer] ( [place]) Cognitive needs: No Hearing needs: No Vision needs: No Questionnaire PHQ-9 Over the last 2 weeks, how often have you been bothered by any of the following problems? 1. Little interest or pleasure in doing things: not at all 2. Feeling down, depressed, or hopeless: not at all 3. Trouble falling or staying asleep, or sleeping too much: not at all 4. Feeling tired or having little energy: several days 5. Poor appetite or overeating: not at all 6. Feeling bad about yourself - or that you are a failure or have let yourself or your family down: not at all 7. Trouble concentrating on things, such as reading the newspaper or watching television: not at all 8. Moving or speaking so slowly that other people could have noticed. Or the opposite - being so fidgety or restless that you have been moving around a lot more than usual: not at all 9. Thoughts that you would be better off or of hurting yourself in some way: not at all Total score: 1 Depression Screening Interpretation: Negative Depression Screening Done: Yes 30852 - PHQ-9 Billing: Patient declined-do not bill Source: Developed by Drs. Jarvis Kelly, Mary Mata, Man Marshall and colleagues, with an educational juli from [employer]. Thrive Questionnaire Date Thrive assessed: 06/12/25 I am a: Patient What is your living situation today?: I have a steady place to live Within the past 12 months, did the food you bought not last and you didn't have the money to get more?: Never true Within the past 12 months, did you worry whether your food would run out before you got money to buy more?: Never true Do you have trouble paying for medicines?: No Do you have trouble getting transportation to medical appointments?: No Do you have trouble paying your heating and electricity bill?: No Do you have trouble taking care of your child, family member or friend?: No Do you have trouble with day-to-day activities such as bathing, preparing meals, shopping, managing finances, etc.?: No Are you currently unemployed and looking for a job?: No Are you interested in more education?: No Please select the resources that you would like help with: None Currently or been in a relationship where the following occur: No concerns reported THRIVE Score: 0 AUDIT C Alcohol Use Questionnaire (AUDIT-C) 1. How often do you have a drink containing alcohol?: 4 or more times a week 2. How many drinks containing alcohol do you have on a typical day when you are drinking?: 1 or 2 3. How often do you have six or more drinks on one occasion?: Monthly Total Score: 6 MERRY-7 AMB Questionnaire MERRY-7 Date MERRY - 7 assessed: 06/12/25 Feeling nervous, anxious, or on edge: 1 = Several days Not being able to stop or control worryin = Not at all Worrying too much about different things: 0 = Not at all Trouble relaxin = Not at all Being so restless that it is hard to sit still: 0 = Not at all Becoming easily annoyed or irritable: 0 = Not at all Feeling afraid as if something awful might happen: 1 = Several days Total MERRY-7 score (0-4 normal; 5-9 mild; 10-14 moderate; 15-21 severe): 2 Source: Developed by Drs. Jarvis Kelly, Mary Mata, Man Marshall and colleagues, with an educational juli from [employer]. MERRY-7 Assessment Billing MERRY-7 Assessment Tool: MERRY-7 Assessment 07998 Review of Systems Const Denies body aches, Denies chills, Denies excessive sweating, Denies fatigue, Denies fever(s) and Denies headache(s) Eyes Denies blurry vision ENT Denies dysphagia, Denies vertigo, Denies dizziness, Denies headache(s), Denies hearing loss and Denies tinnitus Card Denies chest pain, Denies chest pain with activity, Denies syncope, Denies irregular heart rhythm and Denies dyspnea Resp Denies chest congestion, Denies cough, Denies hemoptysis, Denies dyspnea and Denies wheezing GI Denies abdominal pain, Denies melena, Denies hematochezia, Denies coffee ground emesis, Denies dysphagia, Denies diarrhea, Denies nausea and Denies vomiting Denies difficulty urinating, Denies dysuria, Denies urinary frequency, Denies urinary hesitancy and Denies urinary urgency Musc Denies arthralgias, Denies limited range of motion, Denies muscle cramps and Denies muscle weakness Skin/Breast Denies rash and Denies skin ulcer Neuro Denies Abnormal speech present, Denies confusion, Denies vertigo, Denies dizziness, Denies syncope, Denies headache(s), Denies memory loss and Denies seizure-like activity Psych Denies anxiety, Denies confusion, Denies depression, Denies memory loss, Denies panic attacks and Denies paranoia Endo Denies excessive sweating, Denies fatigue, Denies flushing, Denies polydipsia and Denies polyuria Aller/Immun Denies wheezing Physical exam (Primary Care) Vital Signs: Last Vital Signs Temp 97.3 F 06/12/25 13:50 Pulse 56 06/12/25 13:50 BP 148/72 H 06/12/25 13:50 Pulse Ox 97 06/12/25 13:50 Oxygen Delivery Method Room Air 06/12/25 13:50 BMI result Body Mass Index 31.5 BMI Assessment/Plan discussion: High BMI High, discussed plan: lifestyle, weight reduction, dietary and physical activity Tobacco/Smoking Status: Tobacco use Status Tobacco use date assessed 06/12/25 06/12/25 13:59 Patient Tobacco Use Status Former Tobacco user 06/12/25 13:59 Tobacco use type Cigarette 06/12/25 13:59 e-Cigarette/Vaping Use Never Used 06/12/25 13:59 PHQ-9: PHQ-9 Score PHQ-9: Total score 1 06/12/25 14:53 Depression Screening Interpretation: Negative Thrive Assessment: Date of Thrive Assessment Date Thrive assessed 06/12/25 06/12/25 13:59 Currently or been in a relationship where the following occur: No concerns reported Const Other: Please General: cooperative, comfortable, no acute distress, alert and awake; No confusion Orientation/consciousness: oriented to person, oriented to place, patient oriented x3 and No confusion HENMT Head: Yes normocephalic Ears: external ears normal and TM's normal bilaterally Face and sinus: No sinus tenderness Mouth: Normal oral and palatal mucosa present and tongue normal Teeth and gingiva: dentition normal and gingiva normal Throat: Yes posterior oropharynx normal, Yes tonsils normal and Yes uvula midline Eyes Conjunctivae: conjunctivae normal Sclerae: sclerae normal Pupils: Equal, round and reactive pupils present EOM: EOMs intact bilaterally Direct Ophthalmoscopy: No no photophobia Neck Neck: Yes no lymphadenopathy, No tender and Yes no JVD Thyroid: Thyroid normal Carotids: no bruits Chest Chest palpation & inspection: no tenderness Resp Effort & Inspection: normal respiratory effort, no audible wheezes, not labored and no stridor Auscultation: no crackles, no rales, no rhonchi and no wheezes Cardio Jugular venous distension: no JVD Rate: regular rate, not bradycardic and not tachycardic Rhythm: regular rhythm Bruits: no carotid bruits Peripheral pulses: Peripheral pulses 2+ throughout GI Inspection: Yes normal to inspection, No abdominal wall ecchymosis and No visible herniation Palpation (GI): Soft to palpation, nontender, no guarding, not rigid and No hepatosplenomegaly present Auscultation: normoactive bowel sounds General: Yes no CVA tenderness Back/Spine/Pelvis Back: no CVA tenderness and No back tenderness Cervical Spine: cervical ROM normal Thoracic/Lumbar Spine: thoracic and lumbar spine normal to inspection, straight leg raise negative bilaterally, No thoraco-lumbar ROM limited and No lumbar spinal tenderness Skin Lesions: no lesions Rashes: no rashes Wounds: no wounds Neuro General: oriented to person, oriented to place, patient oriented x3, CN's II-XI intact bilaterally and No confusion Cranial nerves: Yes Equal, round and reactive pupils present and Yes Normal accommodation reflex present Cognition (Neuro): normal cognition Speech: No Abnormal speech present Gait exam (Neuro): Normal gait present Motor exam (neuro): 5/5 motor strength present throughout Extrem Right upper extremity: full ROM; no cyanosis Left upper extremity: full ROM; no cyanosis Right lower extremity: no edema Left lower extremity: no edema Psych Appearance: grossly normal Mental Status: mental status grossly normal Affect: normal affect Attitude: cooperative Thought process: Normal thought process present Office Procedures Flu Questionnaire Does the patient have a severe egg allergy?: No Does the patient have severe life threatening allergies?: No Does the patient have a fever or illness today?: No Has the patient ever had Guillain-[place] Syndrome?: No Has the patient ever had any past reaction to a flu shot?: No Immunizations Fluarix [id number] (PF) 45 mcg (15 mcg x 3)/0.5 mL IM syringe Performing Provider: Broderick Gaytan PA-C [place] [facility] [place] [facility] [place] [facility] Administered by: Tonya Luna LPN on 06/12/25 14:53 Dose Route Admin Location Dispensed Lot Number Expiration Date [facility] Digital Account Coordinator 0.5 mL IM Left Deltoid 0.5 mL [id number] 01/23/26 [id number] [employer] VIS Given Date VIS Provided VIS Publication Date 06/12/25 Single Vaccine 24 Eligibility Eligibility Date Funding Source Not [facility] Eligible 06/12/25 Private Coding Level of Care Code Est Pt Prev Care 40-64y([id number]) Diagnoses Annual physical exam Z00.00 Borderline high cholesterol E78.9 Primary hypertension I10 Hypertension type: primary hypertension Class 1 obesity E66.811 Chronic GERD K21.9 Tubulovillous adenoma D36.9 Obstructive sleep apnea G47.33 Additional Codes MERRY-7 Assessment Billing - MERRY-7 Assessment Tool: MERRY-7 Assessment [id number] ([id number]) Assessment & Plan Assessment & Plan (1) Annual physical exam: Code(s): Z00.00 - Encounter for general adult medical examination without abnormal findings Category: Medical Plan: As per HPI (2) Borderline high cholesterol: Code(s): E78.9 - Disorder of lipoprotein metabolism, unspecified Category: Medical Plan: Dietary recommendations emphasized: limit animal fats and incorporate cardiovascular exercise. (3) HTN (hypertension): Code(s): I10 - Essential (primary) hypertension Category: Medical Qualifiers: Hypertension type: primary hypertension Qualified Code(s): I10 - Essential (primary) hypertension Plan: Continue Losartan-hydrochlorothiazide; monitor blood pressure at home and consider lifestyle modifications. Goal BP to be below 140/ 90 (4) Class 1 obesity: Code(s): E66.811 - Obesity, class 1 Category: Medical Plan: Patient does understand his BMI is over 30 will continue working on lifestyle modifications and dietary modifications to reduce his weight (5) Chronic GERD: Comment: Will increase Omeprazole 20 mg bid x 8 wks- avoid culprits Code(s): K21.9 - Gastro-esophageal reflux disease without esophagitis Category: Medical Plan: For management of gastroesophageal reflux disease, the patient will discontinue omeprazole and a prescription for famotidine 20 mg will be sent to the pharmacy. He was advised he can use [id number] antacids like Tums or Rolaids for breakthrough symptoms. (6) Tubulovillous adenoma: Comment: Repeat asymptomatic colonoscopy 3 years All first-degree relatives begin colon screening age 40 Code(s): D36.9 - Benign neoplasm, unspecified site Category: Medical Plan: Patient has personal history of tubular adenoma polyp. Patient is due for repeat colonoscopy (7) Obstructive sleep apnea: Comment: The symptoms, and findings of home-based sleep study were positive for GAYATRI but mild. He also had Nocturnal Hypoxemia . Had CPAP titration in the sleep lab just 2 days ago. Pressure was gradually increased to 15 cm to achieve optimal results. There were only a few obstructive events, left and the oxygenation was in normal range. so he did not need any O2 supplementation. Code(s): G47.33 - Obstructive sleep apnea (adult) (pediatric) Category: Medical Plan: For weight management and severe obstructive sleep apnea, the option of Zepbound (tirzepatide) was discussed as the patient is a candidate with a BMI of 31. He was instructed to research the medication and can message through the patient portal if he wishes to start it, with a potential follow-up in two months to assess tolerance and efficacy. Orders: Orders Comprehensive [place]. Panel Fast 06/12/25 I10 - Essential (primary) hypertension Microalbumin, Random (w Creat) 06/12/25 I10 - Essential (primary) hypertension Influenza [id number] Immunization 06/12/25 Z23 - Encounter for immunization Complete Blood Count no Diff 06/12/25 I10 - Essential (primary) hypertension Referrals Gastroenterology Referral D36.9 - Benign neoplasm, unspecified site Medications: New famotidine 20 mg PO DAILY 30 tabs 2RF 30 days K21.9 - Gastro-esophageal reflux disease without esophagitis On Hold omeprazole Hold Comment: Dose Change 20 mg PO DAILY 90 caps 1RF Patient Instructions: Goal: Blood pressure to remain below 140/90, total cholesterol to be below 200 Barriers: Adherence to physical activity and healthy eating habits
[2025-06-12 13:50] VITALS: BP 148/72; PULSE 56; TEMP 36.3; O2SAT 97; BMI 31.5
== END 2025-06-12 15:02 | disposition home or self-care (01) ==
LOC: HO.HMCH 13:35
PROVIDERS: PCP Physician Assistant; Visit Provider Physician Assistant
DX: Z23 Encounter for immunization (principal)

== ENCOUNTER → 2025-06-12 13:34 | Outpatient (BNVA) | payer BC, SELFPAY | PROVIDERS: PCP Physician Assistant; Visit Provider Physician Assistant | DX: Z23 Encounter for immunization (principal); G47.33 Obstructive sleep apnea (adult) (pediatric); E78.9 Disorder of lipoprotein metabolism, unspecified; I10 Essential (primary) hypertension; E66.811 Obesity, class 1; K21.9 Gastro-esophageal reflux disease without esophagitis; D36.9 Benign neoplasm, unspecified site | CPT/HCPCS: 90471; 90656; 96127 ==

== ENCOUNTER 2025-06-28 12:12 | Outpatient (AMB) | payer BC, SELFPAY ==
[2025-06-28 12:34] VITALS: BP 120/66; PULSE 67; BMI 31.1
--- NOTE | 2025-06-28 12:34 | A.OFFVIS_ITS ---
Vital Signs 06/28/25 12:34 Height 6 ft Weight 229 lb 4.492 oz BMI 31.1 BP 120/66 Blood Pressure Location Lt brachial Position Sitting Pulse 67 Pulse Source Monitor Intake Visit Reasons: 6 mth Allergies No Known Allergies (No Known Allergies*) Allergy (Verified 06/12/25 14:07) Medication List - Last Reconciled 06/28/25 by James Jefferson MD cetirizine (Zyrtec) 10 mg PO DAILY famotidine 20 mg PO DAILY 30 days losartan-hydrochlorothiazide 50-12.5 mg 1 tab PO DAILY 90 days tirzepatide (weight loss) (Zepbound) 2.5 mg (0.5 mL) subcut QWEEK 4 weeks HPI Comments Details: Satya returns for follow-up regarding PVCs. No history of any coronary disease myocardial infarction or cardiomyopathy. Hypertension on medications. No clear-cut anginal-type complaints. History of excessive alcohol use but has been cutting back. Weight is still about the same as before. Has been diagnosed with sleep apnea but not able to tolerate CPAP mask. Otherwise, from the cardiac standpoint does not have any active symptoms. [facility] Medical History Palpitations Surgical History H/O shoulder surgery Hx of esophagogastroduodenoscopy Hx of colonoscopy History of nasal surgery History of tooth extraction Family History Father FH: brain cancer Mother FH: HTN (hypertension) Afib Social History Housing: House Alcohol intake: current Alcohol intake frequency: a few times a week Alcohol type: beer and hard liquor Patient Tobacco Use Status: Former Tobacco user Tobacco use type: Cigarette e-Cigarette/Vaping Use: Never Used Second Hand Smoke Exposure: Yes service: No Current occupational status: employed Current occupation: [employer] ( [place]) Cognitive needs: No Hearing needs: No Vision needs: No Review of Systems Const Denies weakness ENT Denies dizziness Card Denies chest pain, Denies chest pain with activity, Denies syncope, Denies rapid heart rate, Denies pedal edema, Denies edema, Denies leg edema, Denies lightheadedness, Denies palpitations, Denies dyspnea, Denies dyspnea on exertion and Denies orthopnea Resp Denies cough, Denies dyspnea and Denies dyspnea on exertion GI Denies hematochezia and Denies change in stool character Musc Denies abnormal gait, Denies muscle cramps, Denies muscle weakness, Denies numbness, Denies radiating pain into limb and Denies tingling Neuro Denies abnormal gait, Denies dizziness, Denies syncope, Denies numbness, Denies tingling and Denies weakness Endo Denies palpitations Physical Exam Vital Signs: Last Vital Signs Pulse 67 06/28/25 12:34 BP 120/66 06/28/25 12:34 BMI result Body Mass Index 31.1 Const General: comfortable and no acute distress Orientation/consciousness: patient oriented x3 HEENT Other: Unremarkable Head: Yes normal to inspection Neck Neck: Yes normal visual inspection Chest Chest palpation & inspection: normal inspection of the chest Resp Auscultation: clear to auscultation bilaterally Cardio Palpation: normal PMI Heart sounds: S1 normal heart sound present, S2 normal heart sound present, no gallops, no murmurs and no rubs GI Palpation (GI): Soft to palpation Back/Spine/Pelvis Other: unremarkable Skin General skin exam: no rashes or lesions noted Neuro General: patient oriented x3 Extrem General: Yes normal to inspection Psych Mental Status: mental status grossly normal Office Procedures EKG Details: EKG with underlying sinus rhythm at 67/Min; sinus arrhythmias; no ischemic changes; [place]. [id number], Complete Assessment & Plan Assessment & Plan (1) PVC (premature ventricular contraction): Code(s): I49.3 - Ventricular premature depolarization Category: Medical (2) HTN (hypertension): Code(s): I10 - Essential (primary) hypertension Category: Medical Qualifiers: Hypertension type: primary hypertension Qualified Code(s): I10 - Essential (primary) hypertension (3) Obese: Code(s): E66.9 - Obesity, unspecified Category: Medical Qualifiers: Body mass index: BMI 30.0-30.9 Obesity classification: adult class 1 (BMI 30 - 34.9) Obesity type: due to excess calories Serious obesity comorbidity presence: without serious comorbidity Qualified Code(s): E66.09 - Other obesity due to excess calories; Z68.30 - Body mass index [BMI] 30.0-30.9, adult (4) Excessive drinking alcohol: Comment: PATIENT DOES HAVE HISTORY OF ALCOHOL ABUSE. I EDUCATED HIM THAT THIS IS NOT GOOD FOR SLEEP APNEA. 8 WILL RESULT IN FRA.GMENTED SLEEP Code(s): F10.10 - Alcohol abuse, uncomplicated Category: Social Hx (5) Obstructive sleep apnea: Comment: The symptoms, and findings of home-based sleep study were positive for GAYATRI but mild. He also had Nocturnal Hypoxemia . Had CPAP titration in the sleep lab just 2 days ago. Pressure was gradually increased to 15 cm to achieve optimal results. There were only a few obstructive events, left and the oxygenation was in normal range. so he did not need any O2 supplementation. Code(s): G47.33 - Obstructive sleep apnea (adult) (pediatric) Category: Medical (6) Nocturnal hypoxemia: Comment: The nocturnal hypoxemia is part of his un treated GAYATRI . it was corrected with the use of CPAP. Code(s): G47.34 - Idiopathic sleep related nonobstructive alveolar hypoventilation Category: Medical Plan Pertinent studies reviewed. EKG from April 2024 with underlying sinus rhythm at 67/Min; PVCs; normal CA and corrected QT. no ischemic changes. In the EKGs prior to that from 2021, 2017 there are no PVCs. Holter monitor shows underlying sinus rhythm with an average rate of 80/Min. Frequent PVCs with a burden of 16%. Stomach cramps in patient diary correlating with PVCs. Echocardiogram with LVEF of 55-60%. Normal diastolic filling. Possible left atrial dilatation. No significant valvular findings. Exercise stress echocardiogram was negative at 10 METS exercise capacity. Available high sensitivity troponins from 2021, 2023 are within normal limits. Home sleep study with [id number] obstructive sleep apnea. Excessive snoring, 61% of the time. Nocturnal hypoxemia. Suggested sleep related hypoventilation syndrome. Overall, palpitations, frequent PVCs on Holter, obesity, alcohol excess, obstructive sleep apnea, nocturnal hypoxemia, sleep-related hypoventilation. Main recommendation would be to lose weight, cut back on alcohol and use CPAP. According to him, PCP had started him on Zepbound a hopefully can lose some weight with that. In that case, the sleep apnea might spontaneously get better. In about 6 months' time hoping his had some weight loss by then, we will recheck Holter. Blood pressure stable on the current meds. 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 I endorsed the plan to start Zepbound for weight loss, explaining that losing 20- 30 pounds could resolve the sleep apnea and arrhythmia, and potentially eliminate the need for blood pressure medication. I informed the patient that the in-office cardiac monitoring was normal and that no changes to the cardiac plan are needed at this time. We agreed to a follow-up appointment in approximately 6 months to reassess progress. Patient was informed and verbally consented to the use of an ambient scribe for clinic note documentation during this visit. Orders: Orders ECG 3 day holter monitor 6 Months I49.3 - Ventricular premature depolarization Coding Level of Care Code Est Pt Level 4 (23572) Complex visit Add On G2211 Diagnoses PVC (premature ventricular contraction) I49.3 Primary hypertension I10 Hypertension type: primary hypertension Class 1 obesity due to excess calories without serious comorbidity with body mass index (BMI) of 30.0 to 30.9 in adult E66.09; Z68.30 Body mass index: BMI 30.0-30.9 Obesity classification: adult class 1 (BMI 30 - 34.9) Obesity type: due to excess calories Serious obesity comorbidity presence: without serious comorbidity Excessive drinking alcohol F10.10 Obstructive sleep apnea G47.33 Nocturnal hypoxemia G47.34 CPT Codes EKG - CPT: 15668-[id number], Complete ([id number])
== END 2025-06-28 12:53 | disposition home or self-care (01) ==
LOC: HO.HCS 12:12
PROVIDERS: PCP Physician Assistant; Visit Provider Internal Medicine
DX: I49.3 Ventricular premature depolarization (principal); I10 Essential (primary) hypertension; E66.09 Other obesity due to excess calories; Z68.30 Body mass index [BMI] 30.0-30.9, adult; F10.10 Alcohol abuse, uncomplicated; G47.33 Obstructive sleep apnea (adult) (pediatric); G47.34 Idiopathic sleep related nonobstructive alveolar hypoventilation
CPT/HCPCS: 93010; 99214

== ENCOUNTER → 2025-06-28 12:12 | Outpatient (BNVA) | payer BC, SELFPAY | PROVIDERS: PCP Physician Assistant; Visit Provider Internal Medicine | DX: I49.3 Ventricular premature depolarization (principal); I10 Essential (primary) hypertension; E66.09 Other obesity due to excess calories; F10.10 Alcohol abuse, uncomplicated; G47.33 Obstructive sleep apnea (adult) (pediatric); G47.34 Idiopathic sleep related nonobstructive alveolar hypoventilation; Z68.31 Body mass index [BMI] 31.0-31.9, adult; Z87.891 Personal history of nicotine dependence | CPT/HCPCS: 93005 ==